=== PATIENT | female | born 1970 | race Caucasian/White ===

== ENCOUNTER 2016-05-01 15:25 | Emergency (ER) | payer MEDICARE, OTHER ==
[2016-05-01 16:03] VITALS: BP 137/81; PULSE 76; RESP 18; TEMP 98.3
[2016-05-01] MEDS ORDERED: methylPREDNISolone SOD SUCCI 125 MG/2 ML VIAL IM STA (16:18)
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
== END 2016-05-01 16:35 | disposition home or self-care (01) ==
LOC: EC 15:25
DX: G89.29 Other chronic pain (principal); M54.5 Low back pain; F17.200 Nicotine dependence, unspecified, uncomplicated; Z85.89 Personal history of malignant neoplasm of other organs and systems; Z88.5 Allergy status to narcotic agent; V87.8XXA Person injured in other specified noncollision transport accidents involving motor vehicle (traffic), initial encounter; Y92.410 Unspecified street and highway as the place of occurrence of the external cause
CPT/HCPCS: 99283; 96372; J2930

== ENCOUNTER 2016-12-02 06:09 | Day surgery (SDC) | payer MEDICARE, OTHER ==
[2016-11-24 15:36] VITALS: BMI 20.2
[~2016-12-02 06:09] MED LIST: DEXAMETHASONE SOD PHOSPHATE 10 MG/ML 1 ML VIAL IV ONE; HEPARIN SODIUM,PORCINE 5,000 UNIT/ML 1 ML VIAL SQ ONE; HYDROmorphone 1 MG/ML 1 ML SYRINGE IVP PRN; LACTATED RINGERS 1,000 ML IV SCH; MIDAZOLAM 2 MG/2 ML VIAL IV PRN; ONDANSETRON 4 MG/2 ML VIAL IVP ONE; ceFAZolin 2 GM in SODIUM CHLORIDE 0.9% 100 ML IVPB ONE
[2016-12-02] MEDS ORDERED: LIDOCAINE 1% 20 ML VIAL (10MG/ML) FOR IV START INTRADERMA ONE (06:45)
[2016-12-02] MEDS ORDERED: LIDOCAINE 2%-EPI 1:100,000 20 ML VIAL SQ ONE (07:29)
[2016-12-02] MEDS ORDERED: BUPIVACAINE (PF) 0.25% 30 ML VIAL SQ ONE (07:30)
--- NOTE | 2016-12-02 07:55 | P.GSHP ---
History of Present Illness H&P Date: 12/02/16 Chief Complaint: Umbilical hernia This a 46-year-old female who's spell pain at her umbilicus. She was seen in the office and found have a small umbilical hernia. She presents today for laparoscopic robotic system repair. 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 History of Any Multi-Drug Resistant Organisms: MRSA Date of last positivie culture/infection: 2013 MDRO Source:: buttocks Past Surgical History: Section Additional Past Surgical History / Comment(s): surgery, hemorrhoidectomy Past Anesthesia/Blood Transfusion Reactions: Previous Problems w/ Anesthesia Additional Past Anesthesia/Blood Transfusion Reaction / Comment(s): hard time waking up, headaches with epidurals Past Psychological History: Anxiety, Panic Disorder Smoking Status: Current every day smoker Past Alcohol Use History: None Reported Additional Past Alcohol Use History / Comment(s): smoker since age 16, 1/2ppd Past Drug Use History: None Reported - Past Family History Father Family Medical History: Myocardial Infarction ([place]) Mother Family Medical History: Hypertension Medications and Allergies Home Medications Medication Instructions Recorded Confirmed Type traMADol HCl [Ultram] 50 mg PO Q4H PRN 11/18/13 11/24/16 History ALPRAZolam [Xanax] 1 mg PO BID 11/24/16 11/24/16 History Albuterol Inhaler [Ventolin Hfa 1 - 2 puff INHALATION Q6HR PRN 11/24/16 History Inhaler] Pregabalin [Lyrica] 150 mg PO BID 11/24/16 11/24/16 History Allergies Allergy/AdvReac Type Severity Reaction Status Date / Time codeine Allergy Unknown Verified 11/24/16 14:58 meperidine HCl [From Demerol] Allergy Nausea & Verified 11/24/16 14:58 Vomiting morphine Allergy Itching Verified 11/24/16 14:58 Surgical - Exam Vital Signs Temp Pulse Resp BP Pulse Ox 98.1 F 72 18 110/81 96 12/02/16 06:31 12/02/16 06:31 12/02/16 06:31 12/02/16 06:31 12/02/16 06:31 - General well developed, no distress - Eyes PERRL - ENT normal pinna - Neck no masses - Respiratory normal expansion - Cardiovascular Rhythm: regular - Abdomen Abdomen: soft, non tender Hernia: umbilical Assessment and Plan Plan: Umbilical hernia. We'll perform laparoscopic robotic system repair.
[2016-12-02] MEDS ORDERED: NEOSTIGMINE 1 MG/ML 10 ML VIAL ONE (07:58)
[2016-12-02] MEDS ORDERED: SUCCINYLCHOLINE CHLORIDE 100 MG/5 ML SYR IV ONE (07:58)
[2016-12-02] MEDS ORDERED: fentaNYL (PF) 50 MCG/ML 2 ML AMP ONE (07:58)
[2016-12-02] MEDS ORDERED: PROPOFOL 10 MG/ML 20 ML VIAL IV ONE (07:58)
[2016-12-02] MEDS ORDERED: ROCURONIUM BROMIDE 10 MG/ML 10 ML VIAL IV ONE (07:58)
[2016-12-02] MEDS ORDERED: KETOROLAC 30 MG/ML 1 ML VIAL ONE (07:58)
[2016-12-02] MEDS ORDERED: LIDOCAINE 1% INJ 10MG/ML (20 ML MDV) ONE (07:58)
[2016-12-02] MEDS ORDERED: MIDAZOLAM 2 MG/2 ML VIAL ONE (07:58)
[2016-12-02] MEDS ORDERED: GLYCOPYRROLATE 0.2 MG/ML 2 ML VIAL ONE (07:58)
--- NOTE | 2016-12-02 09:06 | P.OP ---
Date of Procedure: 12/02/16 Preoperative Diagnosis: Umbilical hernia Postoperative Diagnosis: Umbilical hernia Procedure(s) Performed: Operative Robotic-assisted repair of umbilical hernia Implants: Anesthesia: ARCHIEA Surgeon: Kg Gonzalez Estimated Blood Loss (ml): 5 Pathology: none sent Condition: stable Disposition: PACU Indications for Procedure: Operative Findings: Description of Procedure: The patient's placed the operative table in the supine position. She received general anesthesia. Her abdomen was prepped and draped usual sterile fashion. The abdomen was entered via a optical 5 mm trocar under direct visualization. Then the abdomen was insufflated after adequate insufflation a 8 mm robotic trochars placed left lower quadrant and a 12 mm trochars placed left lateral position and the original 5 mm trocar was exchanged for an 8 mm robotic trocar. The patient was then docked to the robot. The umbilical hernia was visualized. There was some incarcerated. Peritoneal fat. This was reduced using hook cautery and traction. The fascial defect was then closed with OV lock suture. Next a piece of ventral X ST mesh was secured to the fascia using 2 OV lock suture. Next the was then undocked the robot. The needles were retrieved. The fascia of the 12 mm trocar site was closed with 0 Ethibond. The skin was closed interrupted 3-0 Monocryl suture. Dermabond was applied. Patient top procedure well and was sent to recovery in stable condition.
[2016-12-02 09:24] VITALS: TEMP 97.2
[2016-12-02 09:34] VITALS: RESP 16
[2016-12-02] MEDS ORDERED: HYDROcodone/APAP 7.5-325MG 1 EACH TAB PO ONE (10:30)
[2016-12-02 11:07] VITALS: BP 139/82; PULSE 70
== END 2016-12-02 11:09 | disposition home or self-care (01) ==
LOC: OR 06:09
PROVIDERS: ATTEND Surgery
DX: K42.0 Umbilical hernia with obstruction, without gangrene (principal); J45.909 Unspecified asthma, uncomplicated; F17.200 Nicotine dependence, unspecified, uncomplicated; F41.9 Anxiety disorder, unspecified; F41.0 Panic disorder [episodic paroxysmal anxiety]; Z79.899 Other long term (current) drug therapy; Z88.5 Allergy status to narcotic agent
CPT/HCPCS: 81025; 49653; C1781; J2250; J1644; J1100; J2710; J0690; J2405; J2001; J3010; J1885; J1170; J0330; J2704

== ENCOUNTER 2016-12-16 10:15 | Emergency (ER) | payer MEDICARE, OTHER ==
[2016-12-16] MEDS ORDERED: SODIUM CHLORIDE 0.9% 500 ML IV STA (10:55)
[2016-12-16] MEDS ORDERED: MORPHINE SULFATE 4 MG/ML SYRINGE IV STA (10:55)
[2016-12-16] MEDS ORDERED: SODIUM CHLORIDE 0.9% 1,000 ML IV STA (10:55)
[2016-12-16] MEDS ORDERED: ONDANSETRON 4 MG/2 ML VIAL IVP STA (10:55)
[2016-12-16] MEDS ORDERED: HYDROmorphone 1 MG/ML 1 ML SYRINGE IVP STA (11:02)
[2016-12-16 11:31] LABS: Basophils # (A) 0.1 k/uL (0-0.2); Basophils % (A) 0 %; CH 34.6; CHCM 34.8; Eosinophils # (A) 0.5 k/uL (0-0.7); Eosinophils % (A) 4 %; HCT 37.2 % (34.0-46.0); HGB 12.6 gm/dL (11.4-16.0); Luc % (Auto) 2; Lymphocytes # (A) 3.1 k/uL (1.0-4.8); Lymphocytes % (A) 23 %; MCV 100.1 fL (80.0-100.0); Macrocytosis Slight; Mean Platelet Volume 7.9; Monocytes # (A) 0.9 k/uL (0-1.0); Monocytes % (A) 6 %; Neutrophils # (A) 8.7 k/uL (1.3-7.7); Neutrophils % (A) 65 %; RBC 3.72 m/uL (3.80-5.40); RDW 14.4 % (11.5-15.5); WBC 13.4 k/uL (3.8-10.6)
--- NOTE | 2016-12-16 11:46 | XR ---
EXAMINATION TYPE: XR chest 2V DATE OF EXAM: 12/16/2016 CLINICAL HISTORY: Pain TECHNIQUE: Frontal and lateral views of the chest are obtained. COMPARISON: None FINDINGS: There is no focal air space opacity, pleural effusion, or pneumothorax seen. The cardiac silhouette size is within normal limits. The osseous structures are intact. IMPRESSION: No acute cardiopulmonary process.
[2016-12-16 11:49] LABS: ALT 22 U/L (9-52); AST 16 U/L (14-36); Alkaline Phosphatase 75 U/L (38-126); Amylase <30 U/L (30-110); Anion Gap 11 mmol/L; Blood Urea Nitrogen 2 mg/dL (7-17); C Reactive Protein 44.6 mg/L (<10.0); Calcium 9.1 mg/dL (8.4-10.2); Carbon Dioxide 23 mmol/L (22-30); Chloride 104 mmol/L (98-107); Glucose 96 mg/dL (74-99); Non-African American GFR(MDRD) >60 (>60 ml/min/1.73 sqM); Potassium 3.7 mmol/L (3.5-5.1); Sodium 138 mmol/L (137-145); Total Bilirubin 0.2 mg/dL (0.2-1.3); Total Protein 6.2 g/dL (6.3-8.2)
--- NOTE | 2016-12-16 11:52 | XR ---
EXAMINATION TYPE: XR KUB DATE OF EXAM: 12/16/2016 COMPARISON: NONE HISTORY: Pain TECHNIQUE: Single supine KUB image of the abdomen is obtained FINDINGS: Small bowel demonstrates no evidence for dilatation or air fluid levels. Gas and fecal material is seen in non-distended colon. No convincing evidence for pneumoperitoneum. No unusual calcifications. The lung bases are clear. The osseous structures are intact. IMPRESSION: 1. Overall nonobstructive bowel gas pattern.
[2016-12-16] MEDS ORDERED: RX INFO: IV CONTRAST WAS GIVEN 1 EACH MISC MISCELLANE PRN (12:24)
--- NOTE | 2016-12-16 13:00 | ED ---
Abdominal Pain HPI - General Chief Complaint: Abdominal Pain Stated Complaint: Poss blood clot Time Seen by Provider: 12/16/16 10:25 Source: patient Mode of arrival: ambulatory Limitations: no limitations - History of Present Illness Initial Comments: 6 years old female had laparoscopic hernia repair 15 days ago she had the mild pain or longer. The worse today, she seen her family doctor this morning and she was advised to come to the ER she doesn't follow up appointment with Dr. Gonzalez tomorrow morning, pain is diffuse pain she said she had a mild fever earlier no nausea no vomiting she moved her bowels today. He has nausea no vomiting. Denies any headaches no chest pain or shortness of breath, abdominal pain no frequency urgency dysuria - Related Data Home Medications Medication Instructions Recorded Confirmed traMADol HCl [Ultram] 50 mg PO Q4H PRN 11/18/13 12/16/16 ALPRAZolam [Xanax] 1 mg PO BID 11/24/16 12/16/16 Pregabalin [Lyrica] 150 mg PO BID 11/24/16 12/16/16 Previous Rx's Medication Instructions Recorded HYDROmorphone [Dilaudid] 1 mg PO Q4HR PRN #12 tab 12/16/16 Levofloxacin [Levaquin] 750 mg PO DAILY #7 tab 12/16/16 Allergies Allergy/AdvReac Type Severity Reaction Status Date / Time codeine Allergy Unknown Verified 12/16/16 10:45 meperidine HCl [From Demerol] Allergy Nausea & Verified 12/16/16 10:45 Vomiting morphine Allergy Itching Verified 12/16/16 10:45 Review of Systems ROS Statement: Those systems with pertinent positive or pertinent negative responses have been documented in the HPI. ROS Other: All systems not noted in ROS Statement are negative. 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 History of Any Multi-Drug Resistant Organisms: MRSA Date of last positivie culture/infection: 2013 MDRO Source:: buttocks Past Surgical History: Section Additional Past Surgical History / Comment(s): surgery, hemorrhoidectomy Past Anesthesia/Blood Transfusion Reactions: Previous Problems w/ Anesthesia Additional Past Anesthesia/Blood Transfusion Reaction / Comment(s): hard time waking up, headaches with epidurals Past Psychological History: Anxiety, Panic Disorder Smoking Status: Current every day smoker Past Alcohol Use History: None Reported Past Drug Use History: None Reported - Past Family History Father Family Medical History: Myocardial Infarction ([place]) Mother Family Medical History: Hypertension General Exam - General Exam Comments Initial Comments: General: The patient is awake and alert, in mild distress Skin: Skin is warm and dry and no rashes or lesions are noted. Eye: Pupils are equal, round and reactive to light, extra-ocular movements are intact; there is normal conjunctiva bilaterally. Ears, nose, mouth and throat: There are moist mucous membranes and no oral lesions. Neck: The neck is supple, there is no tenderness or JVD. Cardiovascular: There is a regular rate and rhythm. No murmur, rub or gallop is appreciated. Respiratory: To auscultation bilateral, no wheezing no rhonchi no distress respiratory hall noticed Gastrointestinal: Abdomen seems bit distended, bowel sounds are hyperactive mild guarding, mild diffuse discomfort all over the abdomen Back: There is no tenderness to palpation in the midline. There is no obvious deformity. Musculoskeletal: Normal ROM, no tenderness, There is no pedal edema. There is no calf tenderness or swelling. No cords were appreciated. Neurological: CN II-XII intact, Cranial nerves III through XII are intact. There are no obvious motor or sensory deficits. Coordination appears grossly intact. Speech is normal. Psychiatric: Cooperative, appropriate mood & affect, normal judgment. Limitations: no limitations Course Vital Signs 12/16/16 12/16/16 10:16 13:53 Temperature 97.7 F Pulse Rate 89 83 Respiratory 18 18 Rate Blood Pressure 119/76 131/79 O2 Sat by Pulse 98 97 Oximetry Vision was reassessed at around 12:15, noticed white count was slightly elevated at 13.4 KUB and chest x-ray were negative see . protein was elevated as well and considering elevated C-reactive protein and ongoing pain actually worsening pain over the last couple days were provided and proceed with CT of the abdomen and patient agrees with the - Reevaluation(s) Reevaluation #1: 12/16/16 14:02 Vision was reassessed couple times, noticed his CT abdomen revealed large fluid collection about 10.5 cm and then also a small lesion noticed on the lumbar considering it could be a postoperative seroma or accumulation of polyps I will R Dr. Gonzalez patient be started on antibiotics. I spoke with Dr. Gonzalez doctors in recommended Levaquin 750 mg by mouth once daily and some pain medications and he will see her tomorrow morning 12/16/16 14:11 Medical Decision Making - Lab Data Result diagrams: 12/16/16 11:00 12/16/16 11:00 Lab Results 12/16/16 12/16/16 12/16/16 Range/Units 11:00 11:00 13:11 WBC 13.4 H (3.8-10.6) k/uL RBC 3.72 L (3.80-5.40) m/uL Hgb 12.6 (11.4-16.0) gm/dL Hct 37.2 (34.0-46.0) % MCV 100.1 H (80.0-100.0) fL MCH 34.0 (25.0-35.0) pg MCHC 34.0 (31.0-37.0) g/dL RDW 14.4 (11.5-15.5) % Plt Count 422 (150-450) k/uL Neutrophils % 65 % Lymphocytes % 23 % Monocytes % 6 % Eosinophils % 4 % Basophils % 0 % Neutrophils # 8.7 H (1.3-7.7) k/uL Lymphocytes # 3.1 (1.0-4.8) k/uL Monocytes # 0.9 (0-1.0) k/uL Eosinophils # 0.5 (0-0.7) k/uL Basophils # 0.1 (0-0.2) k/uL Macrocytosis Slight Sodium 138 (137-145) mmol/L Potassium 3.7 (3.5-5.1) mmol/L Chloride 104 (98-107) mmol/L Carbon Dioxide 23 (22-30) mmol/L Anion Gap 11 mmol/L BUN 2 L (7-17) mg/dL Creatinine 0.60 (0.52-1.04) mg/dL Est GFR (MDRD) Af Amer >60 (>60 ml/min/1.73 sqM) Est GFR (MDRD) Non-Af >60 (>60 ml/min/1.73 sqM) Glucose 96 (74-99) mg/dL Calcium 9.1 (8.4-10.2) mg/dL Total Bilirubin 0.2 (0.2-1.3) mg/dL AST 16 (14-36) U/L ALT 22 (9-52) U/L Alkaline Phosphatase 75 (38-126) U/L C-Reactive Protein 44.6 H (<10.0) mg/L Total Protein 6.2 L (6.3-8.2) g/dL Albumin 3.8 (3.5-5.0) g/dL Amylase <30 L (30-110) U/L Lipase 25 (23-300) U/L Urine Color Colorless Urine Appearance Clear (Clear) Urine pH 6.5 (5.0-8.0) Ur Specific [place] 1.001 (1.001-1.035) Urine Protein Negative (Negative) Urine Glucose (UA) Negative (Negative) Urine Ketones Negative (Negative) Urine Blood Trace H (Negative) Urine Nitrite Negative (Negative) Urine Bilirubin Negative (Negative) Urine Urobilinogen <2.0 (<2.0) mg/dL Ur Leukocyte Esterase Negative (Negative) Urine RBC <1 (0-5) /hpf Urine WBC 1 (0-5) /hpf Ur Squamous Epith Cells 1 (0-4) /hpf Urine Bacteria Rare H (None) /hpf Disposition Clinical Impression: Abdominal pain, Liver lesion, Seroma Disposition: HOME SELF-CARE Condition: Good Instructions: Abdominal Pain (ED) Additional Instructions: I spoke with the Dr. Gonzalez, he agreed to see her tomorrow morning in his office Prescriptions: HYDROmorphone [Dilaudid] 1 mg PO Q4HR PRN #12 tab PRN Reason: Pain Levofloxacin [Levaquin] 750 mg PO DAILY #7 tab Referrals: Tavo Corbin MD [Primary Care Provider] - 1-2 days
[2016-12-16 13:37] LABS: Appearance,Urine Clear (Clear); Bacteria,Urine Rare /hpf; Bilirubin,Urine Negative (Negative); Glucose,Urine (UA) Negative (Negative); Ketones,Urine Negative (Negative); Leukocyte Esterase,Urine Negative (Negative); Nitrite,Urine Negative (Negative); PH, Urine 6.5 (5.0-8.0); Particle Count 420; Protein,Urine Negative (Negative); RBC,Urine <1 /hpf (0-5); Specific Gravity,Urine 1.001 (1.001-1.035); Squamous Epithelial Cell,Urine 1 /hpf (0-4); UA Billing (MACRO vs. MICRO) MICRO; Urobilinogen,Urine <2.0 mg/dL (<2.0); WBC,Urine 1 /hpf (0-5)
--- NOTE | 2016-12-16 13:52 | CT ---
EXAMINATION TYPE: CT abdomen pelvis w con DATE OF EXAM: 12/16/2016 COMPARISON: PET CT 01/26/2015 HISTORY: 46 year-old female possible blood clot; s/p hernia repair TECHNIQUE: Contiguous axial scanning of the abdomen and pelvis following administration of 100 ml Omn ipaque 300 IV contrast. Delayed images through the kidneys and coronal/sagittal reconstructions perf ormed. CT DLP: 809 mGycm Automated exposure control for dose reduction was used. FINDINGS: Partially visualized bilateral breast implants. Heart is normal size without pericardial effusion. Chronic atelectasis/scarring medial right middle l obe and inferior lingula. Additional dependent opacities at the lung bases could represent some inter stitial scarring or areas of atelectasis. No pleural effusion. Small hiatal hernia. Small amount of focal fat along the anterior falciform ligament. There is also a nonspecific enhancing lesion within the inferior right hepatic lobe measuring 1 cm, a xial image 36. Follow-up is recommended. No biliary ductal dilatation. Portal venous system appears patent. Gallbladder, adrenal glands, kidneys, spleen, and pancreas show no gross abnormality. No dilated small bowel or free air. Normal appendix. There is moderate stool burden without pericolic inflammatory change seen. There is a large fluid collection along the anterior intra-abdominal space just deep to the abdominal wall musculature. This may be bounded posteriorly by hernia repair mesh or this could represent thin rim of enhancement. Collection measures 10.4 cm wide by 2.5 cm thick by 6.9 cm craniocaudal. There i s some adjacent inflammatory fat stranding along the inferior margin of this fluid collection. Interv al repair of the patient's fatty umbilical hernia. Bladder is urine distended. Uterus and ovaries are visualized. There is small to moderate cul-de-sac free fluid which may be physiologic or could reflect the inflammatory process in the anterior abdomen . No pelvic lymphadenopathy seen. Bones: No osseous destructive process. IMPRESSION: 1. A LARGE 10.4 CM FLUID COLLECTION WITHIN THE ANTERIOR INTRA-ABDOMINAL SPACE JUST DEEP TO THE UMBILI CUS. A POSTOPERATIVE SEROMA OR OTHER FLUID COLLECTION SUCH ABSCESS ARE THE DIFFERENTIAL. Interval repair of patient's fatty umbilical hernia. 2. Small to moderate cul-de-sac free fluid could be physiologic or could be reactive fluid from the i nflammatory process mentioned above. 3. A 1 cm enhancing lesion in the inferior right liver lobe. Stability is uncertain given patient's p rior noncontrast exams. Given the patient's history of cancer, a 3-6 month follow-up contrast enhance d CT is recommended to reassess.
[2016-12-16] MEDS ORDERED: cefTRIAXone 2,000 MG in SODIUM CHLORIDE 0.9% 100 ML IVPB STA (14:01)
[2016-12-16] MEDS ORDERED: metroNIDAZOLE-NS PMX 500 MG in SALINE 1 100ML.BAG IVPB STA (14:01)
[2016-12-16] MEDS ORDERED: LEVOFLOXACIN 750 MG TAB PO STA (14:22)
[2016-12-16 14:33] VITALS: BP 120/72; PULSE 84; RESP 20; TEMP 98
== END 2016-12-16 14:33 | disposition home or self-care (01) ==
LOC: EC 10:15
DX: K91.873 Postprocedural seroma of a digestive system organ or structure following other procedure (principal); K76.9 Liver disease, unspecified; F41.0 Panic disorder [episodic paroxysmal anxiety]; F17.200 Nicotine dependence, unspecified, uncomplicated; Z86.14 Personal history of Methicillin resistant Staphylococcus aureus infection; Z98.890 Other specified postprocedural states; Z85.44 Personal history of malignant neoplasm of other female genital organs; Z79.899 Other long term (current) drug therapy; Z88.5 Allergy status to narcotic agent
CPT/HCPCS: 36415; 80053; 82150; 83690; 85025; 86140; 81001; 71020; 74000; 74177; 99284; 96374; 96375; 96361 ×3; J2405; J1170; Q9967

== ENCOUNTER → 2017-04-07 | Outpatient (CLI) | payer MEDICARE, OTHER ==
--- NOTE | 2017-04-07 15:36 | CT ---
EXAMINATION TYPE: CT abdomen pelvis w con DATE OF EXAM: 04/07/2017 COMPARISON: 12/16/2016 INDICATION: enlarged liver on previous scan, hx of cancer on vulva DLP: 883 mGycm, Automated exposure control for dose reduction was used. CONTRAST: 100 mL of Omnipaque 300. Study performed with Oral Contrast TECHNIQUE: Axial images were obtained from above the diaphragm to the pubic rami in the axial plane a t 5 mm thick sections. Reconstructed images are reviewed on the computer in the coronal plane. FINDINGS: Limited CT sections are obtained the lung bases. The lung bases are clear. CT ABDOMEN: Liver: Previous hyperdense abnormality on the tip of the right lobe of liver appears diminished in si ze over the interval. This currently is estimated to measure 0.8 cm in the craniocaudal dimension, se egraldine 3 image 30. Liver otherwise has a homogenous echotexture without additional masses or cysts. Reji e fatty infiltration is near the anterior right medial lobe liver adjacent to the ligamentum teres. Spleen: Normal Pancreas: Normal Adrenal glands: The adrenal glands are normal. Gallbladder: Normal Kidneys: No masses are evident. No hydronephrosis is present. No cysts are present. Delayed images were obtained through the kidneys, which remain unremarkable. Aorta: Vascular calcification is within the aorta. Inferior vena cava: Normal. CT PELVIS: Previous anterior abdominal wall fluid collection below the level of the umbilicus has res olved over the interval. Loops of bowel within the abdomen and pelvis are normal. There are loops of bowel which are incom pletely distended or lack oral contrast limiting their evaluation. Appendix: Normal as visualized. Urinary bladder: Partially decompressed with some limitation. Genitourinary structures: Uterus and adnexal regions appear within normal limits. Osseous structures: No suspicious lytic or sclerotic lesions. IMPRESSIONS: 1. No suspicious changes within the liver for increasing in size. Small area at the inferior right t ip of the liver is smaller than comparison. 2. No new suspicious changes.
== END | disposition home or self-care (01) ==
LOC: RADCTMAIN 14:57
PROVIDERS: ATTEND Family Medicine
DX: R16.0 Hepatomegaly, not elsewhere classified (principal); Z88.5 Allergy status to narcotic agent
CPT/HCPCS: 74177; Q9967

== ENCOUNTER → 2017-09-18 | Outpatient (CLI) | payer MEDICARE, OTHER ==
--- NOTE | 2017-09-20 11:49 | PE ---
EXAMINATION TYPE: PET CT fusion skull to thigh DATE OF EXAM: 09/18/2017 COMPARISON: CT abdomen pelvis April 07, 2017. Outside PET/CT January 26, 2015 HISTORY: Vulvar cancer progress study completed chemotherapy and surgery September 2012 TECHNIQUE: Following the intravenous administration of 13.9 mCi of F-18 FDG, whole body images are p erformed from the skull base to the midthigh. Images are reviewed on the computer in the coronal, ax ial, and sagittal planes. Reconstructed rotating images are created on independent workstation and r eviewed on the computer. A localization and attenuation correction CT is performed in conjunction w ith the PET scan. SCAN: Subsequent Scan FINDINGS: SKULL BASE AND NECK: No suspicious hypermetabolic uptake is present. CHEST, MEDIASTINUM, AND HILAR REGION: No suspicious hypermetabolic uptake is seen. ABDOMEN AND PELVIS: No suspicious hypermetabolic uptake is seen. Mild uptake in collecting systems, r ight ureter, and bladder is noted. Mild right-sided bowel uptake is present. OSSEOUS STRUCTURES: No suspicious hypermetabolic uptake is seen. OTHER CT: There is small mucous retention cyst or polyp in the inferior posterior right maxillary sin us axial image 19. There is mild calcified plaque right carotid bulb axial image 41. Bilateral symmetric appearing breast implants are present. There is bibasilar linear scarring and/or atelectasis in both lungs near diaphragm. There is multilevel facet arthropathy in the lower lumbar spine. IMPRESSION: No suspicious hypermetabolic uptake is identified to suggest neoplastic recurrence.
== END | disposition home or self-care (01) ==
LOC: RADPETMAIN 13:16
PROVIDERS: ATTEND Obstetrics & Gynecology
DX: C51.9 Malignant neoplasm of vulva, unspecified (principal)
CPT/HCPCS: 78815; A9552

== ENCOUNTER 2018-03-10 15:17 | Emergency (ER) | payer MEDICARE, OTHER ==
[2018-03-10] MEDS ORDERED: KETOROLAC 60 MG/2 ML VIAL IM STA (15:24)
[2018-03-10] MEDS ORDERED: DIAZEPAM 5 MG/ML 2 ML INJ IM STA (15:24)
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
[2018-03-10 15:48] VITALS: TEMP 98.4
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
[2018-03-10 17:23] VITALS: BP 127/92; PULSE 79; RESP 18
== END 2018-03-10 17:15 | disposition home or self-care (01) ==
LOC: EC 15:17
DX: S39.012A Strain of muscle, fascia and tendon of lower back, initial encounter (principal); Z85.44 Personal history of malignant neoplasm of other female genital organs; F41.9 Anxiety disorder, unspecified; F17.200 Nicotine dependence, unspecified, uncomplicated; Z79.891 Long term (current) use of opiate analgesic; Z79.899 Other long term (current) drug therapy; Z88.5 Allergy status to narcotic agent; V49.40XA Driver injured in collision with unspecified motor vehicles in traffic accident, initial encounter; Y92.410 Unspecified street and highway as the place of occurrence of the external cause
CPT/HCPCS: 72110; 99284; 96372 ×2; J3360; J1885

== ENCOUNTER → 2018-04-13 | Outpatient (CLI) | payer OTHER ==
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
== END | disposition home or self-care (01) ==
LOC: RADUSWWP 16:39
PROVIDERS: ATTEND Physician Assistant
DX: M79.662 Pain in left lower leg (principal); R22.42 Localized swelling, mass and lump, left lower limb

== ENCOUNTER → 2018-04-20 | Outpatient (CLI) | payer OTHER ==
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
== END | disposition home or self-care (01) ==
LOC: RADMRIMAIN 20:12
PROVIDERS: ATTEND Family Medicine
DX: M47.816 Spondylosis without myelopathy or radiculopathy, lumbar region (principal)
CPT/HCPCS: 72158; A9585

== ENCOUNTER → 2018-09-01 | Outpatient (CLI) | payer MEDICARE ==
--- NOTE | 2018-09-01 09:06 | MR ---
EXAMINATION TYPE: MR shoulder RT wo con DATE OF EXAM: 09/01/2018 8:27 AM COMPARISON: NONE HISTORY: Pain in right shoulder TECHNIQUE: Multiplanar multispin echo imaging of the right shoulder was performed. FINDINGS: Rotator cuff : There is heterogeneity of the supraspinatus tendon compatible with chronic tendinopath y. No evidence for partial or full-thickness tear. Remaining constituents of the rotator cuff are int act. Bursa: No bursal effusion or thickening is seen. Musculature: There is no muscular tear, contusion, or atrophy. Acromioclavicular joint : There is lateral downsloping of the acromion with subacromial spurring resu lting in impingement. Mild AC joint arthropathy noted. Osseous structures : There are no fractures or regions of abnormal bone marrow signal intensity. Long biceps tendon : The biceps tendon is normally situated within the bicipital groove. No complete or partial biceps tendon tear is present. Glenohumeral Joint fluid : There is no glenohumeral joint effusion. Cartilage and Bone : No focal hyaline cartilage defects are noted. No Hill-Sachs, reverse Hill-Sachs, or bony Bankart lesions are seen. Labrum : There are no SLAP or soft tissue Bankart lesions. No paralabral cysts are seen. OTHER FINDINGS : none IMPRESSION: 1. Chronic tendinopathy supraspinatus tendon with the subacromial impingement.
== END | disposition home or self-care (01) ==
LOC: RADMRIMAIN 07:50
PROVIDERS: ATTEND Family Medicine
DX: M25.811 Other specified joint disorders, right shoulder (principal); M67.813 Other specified disorders of tendon, right shoulder

== ENCOUNTER 2018-09-02 10:41 | Emergency (ER) | payer MEDICARE ==
[2018-09-02 10:59] VITALS: BP 119/67; PULSE 83; RESP 18; TEMP 97.8
[2018-09-02] MEDS ORDERED: ACET/COD 300 MG/30 MG STARTER PACK 6 TAB BTL PO STA (11:33)
--- NOTE | 2018-09-02 11:33 | ED ---
General Adult HPI - General Chief complaint: Recheck/Abnormal Lab/Rx Stated complaint: shoulder pain Time Seen by Provider: 09/02/18 11:07 Source: patient, family, RN notes reviewed Mode of arrival: ambulatory Limitations: no limitations - History of Present Illness Initial comments: 47-year-old female presents to the emergency department for a chief complaint of right shoulder pain. Patient states that approximately one week ago she fell down about 15 stairs. States she has had pain in the right shoulder since that time. States it is very painful to move the shoulder. She did have an MRI completed on yesterday but states that "it is 2019 and I should not have to sit in pain." Patient states she did try to call her primary care doctor today but he is out of the office.Patient has no other complaints at this time including shortness of breath, chest pain, abdominal pain, nausea or vomiting, headache, or visual changes. - Related Data Home Medications Medication Instructions Recorded Confirmed traMADol HCl [Ultram] 100 mg PO BID 11/18/13 09/02/18 Ibuprofen [Motrin] 800 mg PO Q8H PRN 09/02/18 09/02/18 Allergies Allergy/AdvReac Type Severity Reaction Status Date / Time codeine Allergy Unknown Verified 09/02/18 11:21 meperidine HCl [From Demerol] Allergy Nausea & Verified 09/02/18 11:21 Vomiting morphine AdvReac Itching Verified 09/02/18 11:21 Review of Systems ROS Statement: Those systems with pertinent positive or pertinent negative responses have been documented in the HPI. ROS Other: All systems not noted in ROS Statement are negative. Past Medical History Past Medical History: Cancer Additional Past Medical History / Comment(s): back pain, vulva cancer History of Any Multi-Drug Resistant Organisms: None Reported Date of last positivie culture/infection: 2013 MDRO Source:: buttocks Past Surgical History: Hernia Repair Additional Past Surgical History / Comment(s): surgery Past Anesthesia/Blood Transfusion Reactions: Previous Problems w/ Anesthesia Additional Past Anesthesia/Blood Transfusion Reaction / Comment(s): hard time waking up, headaches with epidurals Past Psychological History: Anxiety Smoking Status: Current every day smoker Past Alcohol Use History: None Reported Past Drug Use History: None Reported - Past Family History Father Family Medical History: Myocardial Infarction (ME) Mother Family Medical History: Hypertension General Exam Limitations: no limitations General appearance: alert, in no apparent distress Head exam: Present: atraumatic, normocephalic, normal inspection Eye exam: Present: normal appearance, PERRL, EOMI. Absent: scleral icterus, conjunctival injection, periorbital swelling ENT exam: Present: normal exam, mucous membranes moist Neck exam: Present: normal inspection, full ROM. Absent: tenderness (No cervical tenderness noted), meningismus, lymphadenopathy Respiratory exam: Present: normal lung sounds bilaterally. Absent: respiratory distress, wheezes, rales, rhonchi, stridor Cardiovascular Exam: Present: regular rate, normal rhythm, normal heart sounds. Absent: systolic murmur, diastolic murmur, rubs, gallop, clicks Extremities exam: Present: tenderness (Generalized tenderness to the right shoulder), normal capillary refill (Capillary refill less than 2 seconds, radial pulse 2+), other (Sensation intact in the right upper extremity). Absent: full ROM (Patient has very limited range of motion to the right shoulder but is able to abduct and flex about 20), joint swelling (No significant edema or ecchymosis noted of the right shoulder) Neurological exam: Present: alert, oriented X3, CN II-XII intact Psychiatric exam: Present: normal affect, normal mood Course Vital Signs 09/02/18 10:56 Temperature 97.8 F Pulse Rate 83 Respiratory 18 Rate Blood Pressure 119/67 O2 Sat by Pulse 97 Oximetry Medical Decision Making - Medical Decision Making 47-year-old female presents for right shoulder pain after fall down and 15 stairs about one week ago. No loss of consciousness. Patient has already been evaluated for this fall. Denies any neck pain. Patient states on the vinson today is right shoulder pain. States that she had an MRI done yesterday. The impression does show chronic tendinopathy supraspinatus tendon with the subacromial impingement. Patient was given a sling for this. Patient is very upset that her Motrin is not helping her. Will be given a starter pack of Tylenol 3. I did discuss folllowing up with orthopedics. Also discussed regarding range of motion exercises with a sling to prevent frozen shoulder. Discussed returning here if she has any worsening symptoms. Disposition Clinical Impression: Supraspinatus tendinitis Disposition: HOME SELF-CARE Condition: Good Instructions (If sedation given, give patient instructions): Rotator Cuff Injury (ED) Additional Instructions: Please take Motrin for pain. If pain is severe take Tylenol 3. Wear sling as needed. Be sure to do range of motion exercises with the sling to prevent frozen shoulder. Follow-up with primary care and orthopedics in one to 2 days. Return here if you have any worsening symptoms. Is patient prescribed a controlled substance at d/c from ED?: No Referrals: Alen Escamilla MD [Primary Care Provider] - 1-2 days Carlos Ramirez MD [Medical Doctor] - 1-2 days Time of Disposition: 11:32
== END 2018-09-02 11:54 | disposition home or self-care (01) ==
LOC: EC 10:41
DX: M75.81 Other shoulder lesions, right shoulder (principal); F17.200 Nicotine dependence, unspecified, uncomplicated; Z85.44 Personal history of malignant neoplasm of other female genital organs; Z79.891 Long term (current) use of opiate analgesic; Z88.5 Allergy status to narcotic agent
CPT/HCPCS: 99283

== ENCOUNTER 2018-09-28 16:01 | Inpatient (IN) | payer MEDICARE ==
[2018-09-28] MEDS ORDERED: IBUPROFEN 600 MG TAB PO STA (16:35)
[2018-09-28] MEDS ORDERED: SODIUM CHLORIDE 0.9% 1,000 ML IV STA ×3 (16:35→18:37)
[2018-09-28] MEDS ORDERED: ACETAMINOPHEN TAB 500 MG TAB PO STA (16:35)
[2018-09-28] MEDS ORDERED: ONDANSETRON 4 MG/2 ML VIAL IVP STA (16:35)
[2018-09-28 16:59] LABS: Basophils % (A) 0 %; Eosinophils # (A) 0.3 k/uL (0-0.7); Eosinophils % (A) 2 %; HCT 37.6 % (34.0-46.0); HGB 12.6 gm/dL (11.4-16.0); Lymphocytes # (A) 1.8 k/uL (1.0-4.8); Lymphocytes % (A) 13 %; MCH 32.9 pg (25.0-35.0); MCHC 33.4 g/dL (31.0-37.0); MCV 98.4 fL (80.0-100.0); Mean Platelet Volume 7.4; Monocytes # (A) 0.6 k/uL (0-1.0); Monocytes % (A) 5 %; Neutrophils # (A) 10.5 k/uL (1.3-7.7); Neutrophils % (A) 79 %; Platelet Count 215 k/uL (150-450); RBC 3.82 m/uL (3.80-5.40); RDW 12.9 % (11.5-15.5); WBC 13.3 k/uL (3.8-10.6)
[2018-09-28 17:02] LABS: Appearance,Urine Clear (Clear); Bilirubin,Urine Negative (Negative); Blood,Urine Moderate (Negative); Color,Urine Yellow; Glucose,Urine (UA) Negative (Negative); Ketones,Urine Negative (Negative); Leukocyte Esterase,Urine Trace (Negative); Mucus,Urine Rare /hpf; Nitrite,Urine Negative (Negative); Protein,Urine 1+ (Negative); RBC,Urine 70 /hpf (0-5); Specific Gravity,Urine 1.011 (1.001-1.035); Urobilinogen,Urine <2.0 mg/dL (<2.0); WBC,Urine 4 /hpf (0-5)
[2018-09-28 17:10] LABS: Partial Thromboplastin Time 25.9 sec (22.0-30.0); Prothrombin Time 10.7 sec (9.0-12.0)
[2018-09-28 17:16] LABS: ALT 55 U/L (9-52); AST 281 U/L (14-36); African American GFR (CKD) >90 (>60 ml/min/1.73 sqM); Albumin 3.9 g/dL (3.5-5.0); Alkaline Phosphatase 67 U/L (38-126); Anion Gap 10 mmol/L; Blood Urea Nitrogen 6 mg/dL (7-17); Calcium 8.7 mg/dL (8.4-10.2); Carbon Dioxide 25 mmol/L (22-30); Chloride 97 mmol/L (98-107); Glucose 124 mg/dL (74-99); Magnesium 1.6 mg/dL (1.6-2.3); Phosphorus 2.4 mg/dL (2.5-4.5); Potassium 3.4 mmol/L (3.5-5.1); Sodium 132 mmol/L (137-145); Total Bilirubin 0.4 mg/dL (0.2-1.3); Total Protein 6.2 g/dL (6.3-8.2)
--- NOTE | 2018-09-28 17:20 | ED ---
Fever HPI - General Chief Complaint: Recheck/Abnormal Lab/Rx Stated Complaint: lower back pain Time Seen by Provider: 09/28/18 16:34 Source: patient, RN notes reviewed, old records reviewed Mode of arrival: ambulatory Limitations: no limitations - History of Present Illness Initial Comments: This is a 47-year-old female the ER for evaluation. Patient resents today for evaluation regarding not feeling well. Patient Brenning of left arm pain since a fall 2 weeks ago. Patient also complaining of fever. No cough no congestion or shortness of breath. She does feel weak. No abdominal pain. No headache. Patient presents today for pain with fever. The pain is in her left arm left hand. No recent travel history no sick contacts. MD Complaint: fever, weakness, other (Left arm pain) -: days(s) Temperature Source: subjective Associated Symptoms: chills, myalgias, nausea Treatments Prior to Arrival: none - Related Data Home Medications Medication Instructions Recorded Confirmed traMADol HCl [Ultram] 100 mg PO BID 11/18/13 09/28/18 ALPRAZolam [Xanax] 1 mg PO BID PRN 09/28/18 09/28/18 PARoxetine [Paxil] 40 mg PO DAILY 09/28/18 09/28/18 Pregabalin [Lyrica] 150 mg PO BID 09/28/18 09/28/18 Allergies Allergy/AdvReac Type Severity Reaction Status Date / Time codeine Allergy Unknown Verified 09/28/18 16:58 meperidine HCl [From Demerol] Allergy Nausea & Verified 09/28/18 16:58 Vomiting morphine AdvReac Itching, Verified 09/28/18 16:58 AGGRESIVE Review of Systems ROS Statement: Those systems with pertinent positive or pertinent negative responses have been documented in the HPI. ROS Other: All systems not noted in ROS Statement are negative. Past Medical History Past Medical History: Cancer Additional Past Medical History / Comment(s): back pain, vulva cancer History of Any Multi-Drug Resistant Organisms: None Reported Date of last positivie culture/infection: 2013 MDRO Source:: buttocks Past Surgical History: Hernia Repair Additional Past Surgical History / Comment(s): surgery Past Anesthesia/Blood Transfusion Reactions: Previous Problems w/ Anesthesia Additional Past Anesthesia/Blood Transfusion Reaction / Comment(s): hard time waking up, headaches with epidurals Past Psychological History: Anxiety Smoking Status: Current every day smoker Past Alcohol Use History: None Reported Past Drug Use History: None Reported - Past Family History Father Family Medical History: Myocardial Infarction ([place]) Mother Family Medical History: Hypertension General Exam Limitations: no limitations General appearance: alert, in no apparent distress Head exam: Present: atraumatic, normocephalic, normal inspection Eye exam: Present: normal appearance, PERRL, EOMI. Absent: scleral icterus, conjunctival injection, periorbital swelling ENT exam: Present: normal exam, mucous membranes moist Neck exam: Present: normal inspection. Absent: tenderness, meningismus, lymphadenopathy Respiratory exam: Present: normal lung sounds bilaterally. Absent: respiratory distress, wheezes, rales, rhonchi, stridor Cardiovascular Exam: Present: normal rhythm, tachycardia, normal heart sounds. Absent: systolic murmur, diastolic murmur, rubs, gallop, clicks GI/Abdominal exam: Present: soft, normal bowel sounds. Absent: distended, tenderness, guarding, rebound, rigid Extremities exam: Present: normal inspection, full ROM, normal capillary refill. Absent: tenderness, pedal edema, joint swelling, calf tenderness Back exam: Present: normal inspection Neurological exam: Present: alert, oriented X3, CN II-XII intact Psychiatric exam: Present: normal affect, normal mood Skin exam: Present: warm, dry, intact, normal color. Absent: rash Course Vital Signs 09/28/18 09/28/18 09/28/18 16:02 17:24 18:21 Temperature 102.5 F H 99.3 F Pulse Rate 110 H 90 85 Respiratory 20 18 18 Rate Blood Pressure 120/63 118/77 108/68 O2 Sat by Pulse 94 L 94 L 93 L Oximetry - Reevaluation(s) Reevaluation #1: 09/28/18 18:41 Medical record is reviewed Reevaluation #2: 09/28/18 18:42 Patient is some symptomatic improvement currently Medical Decision Making - Medical Decision Making 47 female the ER for evaluation. Patient having acute rhabdomyolysis. Fever. Unknown cause of fever will start on for broad-spectrum antibiotic, patient be admitted for significant rehydration monitoring of kidney function - Lab Data Result diagrams: 09/28/18 16:50 09/28/18 16:50 Lab Results 09/28/18 09/28/18 09/28/18 Range/Units 16:50 16:50 16:50 WBC 13.3 H (3.8-10.6) k/uL RBC 3.82 (3.80-5.40) m/uL Hgb 12.6 (11.4-16.0) gm/dL Hct 37.6 (34.0-46.0) % MCV 98.4 (80.0-100.0) fL MCH 32.9 (25.0-35.0) pg MCHC 33.4 (31.0-37.0) g/dL RDW 12.9 (11.5-15.5) % Plt Count 215 (150-450) k/uL Neutrophils % 79 % Lymphocytes % 13 % Monocytes % 5 % Eosinophils % 2 % Basophils % 0 % Neutrophils # 10.5 H (1.3-7.7) k/uL Lymphocytes # 1.8 (1.0-4.8) k/uL Monocytes # 0.6 (0-1.0) k/uL Eosinophils # 0.3 (0-0.7) k/uL Basophils # 0.0 (0-0.2) k/uL PT (9.0-12.0) sec INR (<1.2) APTT (22.0-30.0) sec Sodium 132 L (137-145) mmol/L Potassium 3.4 L (3.5-5.1) mmol/L Chloride 97 L (98-107) mmol/L Carbon Dioxide 25 (22-30) mmol/L Anion Gap 10 mmol/L BUN 6 L (7-17) mg/dL Creatinine 0.59 (0.52-1.04) mg/dL Est GFR (CKD-EPI)AfAm >90 (>60 ml/min/1.73 sqM) Est GFR (CKD-EPI)NonAf >90 (>60 ml/min/1.73 sqM) Glucose 124 H (74-99) mg/dL Plasma Lactic Acid Jan 2.9 H* (0.7-2.0) mmol/L Calcium 8.7 (8.4-10.2) mg/dL Phosphorus 2.4 L (2.5-4.5) mg/dL Magnesium 1.6 (1.6-2.3) mg/dL Total Bilirubin 0.4 (0.2-1.3) mg/dL AST 281 H (14-36) U/L ALT 55 H (9-52) U/L Alkaline Phosphatase 67 (38-126) U/L Creatine Kinase 31512 H* (30-135) U/L Troponin I (0.000-0.034) ng/mL Total Protein 6.2 L (6.3-8.2) g/dL Albumin 3.9 (3.5-5.0) g/dL Urine Color Urine Appearance (Clear) Urine pH (5.0-8.0) Ur Specific [place] (1.001-1.035) Urine Protein (Negative) Urine Glucose (UA) (Negative) Urine Ketones (Negative) Urine Blood (Negative) Urine Nitrite (Negative) Urine Bilirubin (Negative) Urine Urobilinogen (<2.0) mg/dL Ur Leukocyte Esterase (Negative) Urine RBC (0-5) /hpf Urine WBC (0-5) /hpf Urine Mucus (None) /hpf Influenza Type A RNA (Not Detectd) Influenza Type B (PCR) (Not Detectd) 09/28/18 09/28/18 09/28/18 Range/Units 16:50 16:50 16:50 WBC (3.8-10.6) k/uL RBC (3.80-5.40) m/uL Hgb (11.4-16.0) gm/dL Hct (34.0-46.0) % MCV (80.0-100.0) fL MCH (25.0-35.0) pg MCHC (31.0-37.0) g/dL RDW (11.5-15.5) % Plt Count (150-450) k/uL Neutrophils % % Lymphocytes % % Monocytes % % Eosinophils % % Basophils % % Neutrophils # (1.3-7.7) k/uL Lymphocytes # (1.0-4.8) k/uL Monocytes # (0-1.0) k/uL Eosinophils # (0-0.7) k/uL Basophils # (0-0.2) k/uL PT 10.7 (9.0-12.0) sec INR 1.0 (<1.2) APTT 25.9 (22.0-30.0) sec Sodium (137-145) mmol/L Potassium (3.5-5.1) mmol/L Chloride (98-107) mmol/L Carbon Dioxide (22-30) mmol/L Anion Gap mmol/L BUN (7-17) mg/dL Creatinine (0.52-1.04) mg/dL Est GFR (CKD-EPI)AfAm (>60 ml/min/1.73 sqM) Est GFR (CKD-EPI)NonAf (>60 ml/min/1.73 sqM) Glucose (74-99) mg/dL Plasma Lactic Acid Jan (0.7-2.0) mmol/L Calcium (8.4-10.2) mg/dL Phosphorus (2.5-4.5) mg/dL Magnesium (1.6-2.3) mg/dL Total Bilirubin (0.2-1.3) mg/dL AST (14-36) U/L ALT (9-52) U/L Alkaline Phosphatase (38-126) U/L Creatine Kinase (30-135) U/L Troponin I <0.012 (0.000-0.034) ng/mL Total Protein (6.3-8.2) g/dL Albumin (3.5-5.0) g/dL Urine Color Yellow Urine Appearance Clear (Clear) Urine pH 6.0 (5.0-8.0) Ur Specific [place] 1.011 (1.001-1.035) Urine Protein 1+ H (Negative) Urine Glucose (UA) Negative (Negative) Urine Ketones Negative (Negative) Urine Blood Moderate H (Negative) Urine Nitrite Negative (Negative) Urine Bilirubin Negative (Negative) Urine Urobilinogen <2.0 (<2.0) mg/dL Ur Leukocyte Esterase Trace H (Negative) Urine RBC 70 H (0-5) /hpf Urine WBC 4 (0-5) /hpf Urine Mucus Rare H (None) /hpf Influenza Type A RNA (Not Detectd) Influenza Type B (PCR) (Not Detectd) 09/28/18 Range/Units 17:22 WBC (3.8-10.6) k/uL RBC (3.80-5.40) m/uL Hgb (11.4-16.0) gm/dL Hct (34.0-46.0) % MCV (80.0-100.0) fL MCH (25.0-35.0) pg MCHC (31.0-37.0) g/dL RDW (11.5-15.5) % Plt Count (150-450) k/uL Neutrophils % % Lymphocytes % % Monocytes % % Eosinophils % % Basophils % % Neutrophils # (1.3-7.7) k/uL Lymphocytes # (1.0-4.8) k/uL Monocytes # (0-1.0) k/uL Eosinophils # (0-0.7) k/uL Basophils # (0-0.2) k/uL PT (9.0-12.0) sec INR (<1.2) APTT (22.0-30.0) sec Sodium (137-145) mmol/L Potassium (3.5-5.1) mmol/L Chloride (98-107) mmol/L Carbon Dioxide (22-30) mmol/L Anion Gap mmol/L BUN (7-17) mg/dL Creatinine (0.52-1.04) mg/dL Est GFR (CKD-EPI)AfAm (>60 ml/min/1.73 sqM) Est GFR (CKD-EPI)NonAf (>60 ml/min/1.73 sqM) Glucose (74-99) mg/dL Plasma Lactic Acid Jan (0.7-2.0) mmol/L Calcium (8.4-10.2) mg/dL Phosphorus (2.5-4.5) mg/dL Magnesium (1.6-2.3) mg/dL Total Bilirubin (0.2-1.3) mg/dL AST (14-36) U/L ALT (9-52) U/L Alkaline Phosphatase (38-126) U/L Creatine Kinase (30-135) U/L Troponin I (0.000-0.034) ng/mL Total Protein (6.3-8.2) g/dL Albumin (3.5-5.0) g/dL Urine Color Urine Appearance (Clear) Urine pH (5.0-8.0) Ur Specific [place] (1.001-1.035) Urine Protein (Negative) Urine Glucose (UA) (Negative) Urine Ketones (Negative) Urine Blood (Negative) Urine Nitrite (Negative) Urine Bilirubin (Negative) Urine Urobilinogen (<2.0) mg/dL Ur Leukocyte Esterase (Negative) Urine RBC (0-5) /hpf Urine WBC (0-5) /hpf Urine Mucus (None) /hpf Influenza Type A RNA Not Detected (Not Detectd) Influenza Type B (PCR) Not Detected (Not Detectd) - EKG Data -: EKG Interpreted by Me (EKG shows NSR rate of 90 [place] 150 QRS 88 QTc 437) - Radiology Data Radiology results: report reviewed (Chest x-rays negative for acute disease CT abdomen pelvis pending), image reviewed Disposition Clinical Impression: Fever, Rhabdomyolysis, Dehydration Disposition: ADMITTED IP TO THIS HOSP Condition: Serious Is patient prescribed a controlled substance at d/c from ED?: No Referrals: None,Stated [Primary Care Provider] - 1-2 days
[2018-09-28 17:40] LABS: Creatine Kinase 13310 U/L (30-135)
--- NOTE | 2018-09-28 18:09 | XR ---
EXAMINATION: XR chest 2V DATE AND TIME: 09/28/2018 5:39 PM CLINICAL INDICATION: PHH; Weakness TECHNIQUE: Departmental protocol COMPARISON: None FINDINGS: The lungs are clear. The pleural spaces are negative. The cardiac silhouette is not enlarged. The remainder of the mediastinal silhouette is unremarkable. The skeletal structures are negative for fracture or malalignment. The soft tissues are negative for acute findings. IMPRESSION: NO ACUTE PROCESS.
[2018-09-28] MEDS ORDERED: SODIUM CHLORIDE 0.9% 2,000 ML IV STA (18:37)
[2018-09-28 19:49] LABS: Lactic Acid, Venous 0.8 mmol/L (0.7-2.0)
--- NOTE | 2018-09-28 20:35 | CT ---
EXAMINATION TYPE: CT abdomen pelvis wo con DATE OF EXAM: 09/28/2018 HISTORY: Recent fall down stairs. Low back and buttock pain. TECHNIQUE: Helical acquisition of images was performed from the lung bases through the pelvis. Autom ated exposure control for dose reduction was used. CT DLP: 340.2 mGycm COMPARISON: 04/07/2017 FINDINGS: Within the limitations of noncontrast CT the following observations are made. LUNG BASES: There are bibasilar developing consolidative opacities, greater on the right; clinical ex clusion of pneumonia is requested. LIVER/GB: No significant abnormality is appreciated. PANCREAS: No significant abnormality is seen. SPLEEN: No significant abnormality is seen. ADRENALS: No significant abnormality is seen. KIDNEYS: No significant abnormality is seen. FREE AIR: No free air is visualized. No peritoneal fluid. RETROPERITONEAL ADENOPATHY: None visualized REPRODUCTIVE ORGANS: No significant abnormality is seen URINARY BLADDER: There is marked urinary bladder distention. No focal findings. PELVIC ADENOPATHY: None visualized. OSSEOUS STRUCTURES: There is no fracture or malalignment. BOWEL: No significant abnormality is seen. IMPRESSION: 1. NO DEFINITE ACUTE PROCESS. 2. Urinary bladder distention. 3. Incidental bibasilar lung ground glass/consolidative opacity, nonspecific finding.
[2018-09-28] MEDS: SODIUM CHLORIDE 0.9% 1,000 ML IV SCH (22:46)
[2018-09-28] MEDS ORDERED: POTASSIUM CHLORIDE ER 20 MEQ TAB.ER PO STA (23:08)
[2018-09-28] MEDS: ACETAMINOPHEN TAB 325 MG TAB PO PRN (23:36)
[2018-09-28] MEDS: ALPRAZolam 1 MG TAB PO PRN (23:36)
[2018-09-29] MEDS: SODIUM CHLORIDE 0.9% 1,000 ML IV SCH ×6 (02:10→23:19)
[2018-09-29] MEDS: ACETAMINOPHEN TAB 325 MG TAB PO PRN (05:56)
[2018-09-29 06:36] LABS: Basophils % (A) 0 %; Eosinophils # (A) 0.3 k/uL (0-0.7); Eosinophils % (A) 3 %; HCT 35.3 % (34.0-46.0); HGB 11.6 gm/dL (11.4-16.0); Lymphocytes # (A) 2.2 k/uL (1.0-4.8); Lymphocytes % (A) 26 %; MCH 32.9 pg (25.0-35.0); MCHC 32.9 g/dL (31.0-37.0); MCV 100.2 fL (80.0-100.0); Mean Platelet Volume 7.5; Monocytes # (A) 0.5 k/uL (0-1.0); Monocytes % (A) 6 %; Neutrophils # (A) 5.3 k/uL (1.3-7.7); Neutrophils % (A) 62 %; Platelet Count 195 k/uL (150-450); RBC 3.52 m/uL (3.80-5.40); RDW 13.1 % (11.5-15.5); WBC 8.5 k/uL (3.8-10.6)
[2018-09-29 06:48] LABS: African American GFR (CKD) >90 (>60 ml/min/1.73 sqM); Anion Gap 1 mmol/L; Blood Urea Nitrogen 4 mg/dL (7-17); Calcium 8.1 mg/dL (8.4-10.2); Carbon Dioxide 28 mmol/L (22-30); Chloride 111 mmol/L (98-107); Glucose 86 mg/dL (74-99); Potassium 3.9 mmol/L (3.5-5.1); Sodium 140 mmol/L (137-145)
[2018-09-29] MEDS: PANTOPRAZOLE 40 MG/10 ML VIAL IV SCH (08:53)
[2018-09-29] MEDS: ENOXAPARIN 40 MG/0.4 ML SYRINGE SQ SCH (08:53)
--- NOTE | 2018-09-29 13:41 | P.HPIM ---
History of Present Illness This is a pleasant 47 years old female with past medical history of chronic back pain, h/o vulvular cancer, status post genito-urinary surgery and chemotherapy in 2013. She is up and chemotherapy anymore. Because of the chemotherapy she had early menopause and patient does not want to be checked for test as she is been sexually inactive lately. She is to follow up with Dr. Small to an couple years ago he diagnosed her with tennis elbow, she is not sure what side. She's been complaining of from numbness and possible weakness in her left forearm for 2 weeks duration. Patient presents because of not feeling well. She has low back pain on the left side for 2 days and low-grade temperature and chills, patient she did not take her temperature. She was complaining from coughing of one-day duration but no sputum is coming up. No chest pain or dyspnea. No abdominal pain. No nausea vomiting. She has regular bowel movements. On admission she has fever of 102.5. Rest of Vitas looks stable. Blood pressure on the low normal site. Her leukocytosis on admission has resolved to 8.5K. Rest of her CBC and BMP were unremarkable. She had elevated lactic acid which is resolved. Influenza [place]. [place] [address]. Troponin is less than 0.012. Liver enzymes mildly elevated. EKG: Sumit sinus rhythm at [address]-T changes. CT of the abdomen and pelvis: Possible pneumonia. Marked urinary bladder distention. Chest x-ray no acute abnormality per radiologist. The emergency room patient was receiving a fluid, Tylenol, started on ceftriaxone. After starting the antibiotics and the fluid therapy, this morning patient feels much better and her lower back p ain is significantly improved. Patient states that she does not have a PCP, however she follows up with Dr. Silva for her management with Ultram, Lyrica and Xanax. She smokes about 4 cigarettes per day, however she denies alcohol or illicit tracts except medical marijuana as per patient Last menstrual period was about 2 years ago for her early menopause as above. Review of Systems CONSTITUTIONAL: No fever, no malaise, no fatigue. HEENT: No recent visual problems or hearing problems. Denied any sore throat. CARDIOVASCULAR: No orthopnea, PND, no palpitations, no syncope. PULMONARY: No shortness of breath, no cough, no hemoptysis. GASTROINTESTINAL: No diarrhea, no nausea, no vomiting, no abdominal pain. Normoactive bowel sounds. NEUROLOGICAL: No headaches, no weakness, no numbness. HEMATOLOGICAL: Denies any bleeding or petechiae. GENITOURINARY: Denies any burning micturition, frequency, or urgency. MUSCULOSKELETAL/RHEUMATOLOGICAL: Denies any joint pain, swelling, or any muscle pain. ENDOCRINE: Denies any polyuria or polydipsia. Past Medical History Past Medical History: Cancer Additional Past Medical History / Comment(s): back pain, vulva cancer History of Any Multi-Drug Resistant Organisms: None Reported Date of last positivie culture/infection: 2013 MDRO Source:: buttocks Past Surgical History: Hernia Repair Additional Past Surgical History / Comment(s): surgery Past Anesthesia/Blood Transfusion Reactions: Previous Problems w/ Anesthesia Additional Past Anesthesia/Blood Transfusion Reaction / Comment(s): hard time waking up, headaches with epidurals Past Psychological History: Anxiety Smoking Status: Current every day smoker Past Alcohol Use History: None Reported Additional Past Alcohol Use History / Comment(s): smoker since age 16, 4-5 cigarettes Past Drug Use History: None Reported - Past Family History Father Family Medical History: Myocardial Infarction ([place]) Mother Family Medical History: Hypertension Medications and Allergies Home Medications Medication Instructions Recorded Confirmed Type traMADol HCl [Ultram] 100 mg PO BID 11/18/13 09/28/18 History ALPRAZolam [Xanax] 1 mg PO BID PRN 09/28/18 09/28/18 History PARoxetine [Paxil] 40 mg PO DAILY 09/28/18 09/28/18 History Pregabalin [Lyrica] 150 mg PO BID 09/28/18 09/28/18 History Allergies Allergy/AdvReac Type Severity Reaction Status Date / Time codeine Allergy Unknown Verified 09/28/18 16:58 meperidine HCl [From Demerol] Allergy Nausea & Verified 09/28/18 16:58 Vomiting morphine AdvReac Itching, Verified 09/28/18 16:58 AGGRESIVE Physical Exam Vitals: Vital Signs Temp Pulse Pulse Resp BP BP Pulse Ox 09/29/18 08:45 98.7 F 61 16 91/57 97 09/29/18 04:00 97.6 F 62 16 102/52 95 09/29/18 03:30 20 09/29/18 00:00 97.8 F 65 16 95/62 96 09/28/18 22:54 98.4 F 71 20 104/63 93 L 09/28/18 20:24 98.7 F 76 18 109/86 93 L 09/28/18 20:00 98.4 F 71 18 104/63 90 L 09/28/18 19:21 87 18 98/68 94 L 09/28/18 18:21 99.3 F 85 18 108/68 93 L 09/28/18 17:24 90 18 118/77 94 L 09/28/18 16:02 102.5 F H 110 H 20 120/63 94 L Intake and Output 09/28/18 09/29/18 09/29/18 22:59 06:59 14:59 Intake Total 150 750 0 Balance 150 750 0 Intake: Intake, IV Titration 600 Amount Sodium Chloride 0.9% 1, 600 000 ml @ 150 mls/hr IV . Q6H40M [facility] Rx#:[id number] Oral 150 150 0 Other: Voiding Method Toilet # Voids 2 Weight 58.695 kg 58.649 kg GENERAL: The patient is alert and oriented x3, not in any acute distress. Well developed, well nourished. HEENT: Pupils are round and equally reacting to light. EOMI. No scleral icterus. No conjunctival pallor. Normocephalic, atraumatic. No pharyngeal erythema. No thyromegaly. CARDIOVASCULAR: S1 and S2 present. No murmurs, rubs, or gallops. PULMONARY: Chest is clear to auscultation, no wheezing or crackles. ABDOMEN: Soft, nontender, nondistended, normoactive bowel sounds. No palpable organomegaly. MUSCULOSKELETAL: No joint swelling or deformity. EXTREMITIES: No cyanosis, clubbing, or pedal edema. NEUROLOGICAL: Gross neurological examination did not reveal any focal deficits. SKIN: No rashes. Results CBC & Chem 7: 09/29/18 05:41 09/29/18 05:41 Labs: Abnormal Lab Results - Last 24 Hours (Table) 09/28/18 09/28/18 09/28/18 Range/Units 16:50 16:50 16:50 WBC 13.3 H (3.8-10.6) k/uL RBC (3.80-5.40) m/uL MCV (80.0-100.0) fL Neutrophils # 10.5 H (1.3-7.7) k/uL Sodium 132 L (137-145) mmol/L Potassium 3.4 L (3.5-5.1) mmol/L Chloride 97 L (98-107) mmol/L BUN 6 L (7-17) mg/dL Glucose 124 H (74-99) mg/dL Plasma Lactic Acid Jan 2.9 H* (0.7-2.0) mmol/L Calcium (8.4-10.2) mg/dL Phosphorus 2.4 L (2.5-4.5) mg/dL AST 281 H (14-36) U/L ALT 55 H (9-52) U/L Creatine Kinase 45178 H* (30-135) U/L Total Protein 6.2 L (6.3-8.2) g/dL Urine Protein (Negative) Urine Blood (Negative) Ur Leukocyte Esterase (Negative) Urine RBC (0-5) /hpf Urine Mucus (None) /hpf 09/28/18 09/29/18 09/29/18 Range/Units 16:50 05:41 05:41 WBC (3.8-10.6) k/uL RBC 3.52 L (3.80-5.40) m/uL MCV 100.2 H (80.0-100.0) fL Neutrophils # (1.3-7.7) k/uL Sodium (137-145) mmol/L Potassium (3.5-5.1) mmol/L Chloride 111 H (98-107) mmol/L BUN 4 L (7-17) mg/dL Glucose (74-99) mg/dL Plasma Lactic Acid Jan (0.7-2.0) mmol/L Calcium 8.1 L (8.4-10.2) mg/dL Phosphorus (2.5-4.5) mg/dL AST (14-36) U/L ALT (9-52) U/L Creatine Kinase (30-135) U/L Total Protein (6.3-8.2) g/dL Urine Protein 1+ H (Negative) Urine Blood Moderate H (Negative) Ur Leukocyte Esterase Trace H (Negative) Urine RBC 70 H (0-5) /hpf Urine Mucus Rare H (None) /hpf Microbiology - Last 24 Hours (Table) 09/28/18 16:50 Urine Culture - Preliminary Urine,Voided Thrombosis Risk Factor Assmnt - Choose All That Apply Any of the Below Risk Factors Present?: Yes Each Factor Represents 1 point: Age 41-60 years, Varicose veins Other Risk Factors: No Other congenital or acquired thrombophilia - If yes, enter type in comment: No Thrombosis Risk Factor Assessment Total Risk Factor Score: 2 Thrombosis Risk Factor Assessment Level: Low Risk Assessment and Plan Assessment: Systemic inflammatory response with fever and leukocytosis, Present on admission community-acquired pneumonia Sepsis secondary to above Acute rhabdomyolysis Hypovolemia and dehydration with low blood pressure Left forearm numbness of 2 weeks duration history of fall Elevated lactic acid, resolved and back to normal. Plan: This is a pleasant 47 years old female who presents with rhabdomyolysis and sepsis Secondary to pneumonia.Continue with parenteral hydration, continue with antibiotic, sputum for culture and sensitivity. Continue with a breathing treatment, oxygen as needed. We'll do physical therapy evaluation. Labs and medication were reviewed. Neurological consult for left upper extremity numbness. Continue same treatment. Continue with symptomatic treatment. Resume home medication. Monitor lytes and vitals. DVT and GI prophylaxis. Further recommendations of the clinical course of the patient DVT prophylaxis: Subcutaneous heparin GI Prophylaxis: Pepcid PT/OT: Pending Prognosis is guarded
--- NOTE | 2018-09-29 15:06 | P.CNNES ---
History of Present Illness Consult date: 09/29/18 Requesting physician: Chandler Rose Reason for Consult: LUE numbness Chief complaint: Left arm numbness x 1 month History of Present Illness: This is a 47 RH female here for pneumonia. She also c/o LUE numbness involving the left thumb, index, middle and ring fingers with radiation up to the lateral forearm. Does not generally go proximally beyond the elbow. Denies neck pain. Does have chronic LBP. No loss of strength or manual dexterity, though this is her non-dominant hand. Denies antecedent head/neck/LUE trauma. Patient states that her LUE actually has been feeling better lately. Neurologically, denies other focal c/o such as diplopia, amaurosis, facial numbness or droop, vertigo, dysarthria, dysphagia, aphasia, other area of focal numbness/weakness not mentioned above, tremors, bowel/bladder incontinence or ataxia. Review of Systems I have performed a 12-point organ ROS with patient that are remarkable for fever and SOB. Other pertinents are as per HPI. Past Medical History Past Medical History: Cancer Additional Past Medical History / Comment(s): back pain, vulva cancer History of Any Multi-Drug Resistant Organisms: None Reported Date of last positivie culture/infection: 2013 MDRO Source:: buttocks Past Surgical History: Hernia Repair Additional Past Surgical History / Comment(s): surgery Past Anesthesia/Blood Transfusion Reactions: Previous Problems w/ Anesthesia Additional Past Anesthesia/Blood Transfusion Reaction / Comment(s): hard time waking up, headaches with epidurals Past Psychological History: Anxiety Smoking Status: Current every day smoker Past Alcohol Use History: None Reported Additional Past Alcohol Use History / Comment(s): smoker since age 16, 4-5 cigarettes Past Drug Use History: None Reported - Past Family History Father Family Medical History: Myocardial Infarction ([place]) Mother Family Medical History: Hypertension Medications and Allergies Home Medications Medication Instructions Recorded Confirmed Type traMADol HCl [Ultram] 100 mg PO BID 11/18/13 09/28/18 History ALPRAZolam [Xanax] 1 mg PO BID PRN 09/28/18 09/28/18 History PARoxetine [Paxil] 40 mg PO DAILY 09/28/18 09/28/18 History Pregabalin [Lyrica] 150 mg PO BID 09/28/18 09/28/18 History Allergies Allergy/AdvReac Type Severity Reaction Status Date / Time codeine Allergy Unknown Verified 09/28/18 16:58 meperidine HCl [From Demerol] Allergy Nausea & Verified 09/28/18 16:58 Vomiting morphine AdvReac Itching, Verified 09/28/18 16:58 AGGRESIVE Physical Examination - Vital Signs Vital Signs: Vital Signs Temp Pulse Pulse Resp BP BP Pulse Ox 09/29/18 12:00 98 F 62 16 108/63 95 09/29/18 08:45 98.7 F 61 16 91/57 97 09/29/18 04:00 97.6 F 62 16 102/52 95 09/29/18 03:30 20 09/29/18 00:00 97.8 F 65 16 95/62 96 09/28/18 22:54 98.4 F 71 20 104/63 93 L 09/28/18 20:24 98.7 F 76 18 109/86 93 L 09/28/18 20:00 98.4 F 71 18 104/63 90 L 09/28/18 19:21 87 18 98/68 94 L 09/28/18 18:21 99.3 F 85 18 108/68 93 L 09/28/18 17:24 90 18 118/77 94 L 09/28/18 16:02 102.5 F H 110 H 20 120/63 94 L Intake and Output 09/28/18 09/29/18 09/29/18 22:59 06:59 14:59 Intake Total 150 750 0 Balance 150 750 0 Intake: Intake, IV Titration 600 Amount Sodium Chloride 0.9% 1, 600 000 ml @ 150 mls/hr IV . Q6H40M [facility] Rx#:[id number] Oral 150 150 0 Other: Voiding Method Toilet # Voids 2 Weight 58.695 kg 58.649 kg Gen NAD Pleasant and cooperative HEENT NCAT Sclera without icterus O/P clear Neck Supple No carotid bruit Cor RRR no m/r/g Lungs CTAB Abd Soft NTND +BS Ext Warm to touch No edema Neuro MS A+Ox4 Normal fluency Able to follow all commands CN PERRL VFF no APD EOMI no nystagmus or GUANAKO No facial asymmetry [place]'s symmetric Hearing intact to normal voice bilaterally Speech not dysarthric Equal elevation of palate Tongue midline Sym shrug and SCM bilaterally Motor Normal bulk/tone No pronator or tremors Strength 5/5 sym throughout Sens Diminished to LT/temp in left lateral forearm and thenar eminence No neglect or extinction No Lhermitte's or Spurlilng's No Tinel's over mid wrist or Phalen Coord No dysmetria on FTN bilaterally DTRs 2+/4 sym throughout Toes downgoing bilaterally No clonus at achilles Gait Deferred Results - Laboratory Findings CBC and BMP: 09/29/18 05:41 09/29/18 05:41 Abnormal Lab Findings: Abnormal Labs 09/28/18 09/28/18 09/28/18 16:50 16:50 16:50 WBC 13.3 H RBC MCV Neutrophils # 10.5 H Sodium 132 L Potassium 3.4 L Chloride 97 L BUN 6 L Glucose 124 H Plasma Lactic Acid Jan 2.9 H* Calcium Phosphorus 2.4 L AST 281 H ALT 55 H Creatine Kinase 05472 H* Total Protein 6.2 L Urine Protein Urine Blood Ur Leukocyte Esterase Urine RBC Urine Mucus 09/28/18 09/29/18 09/29/18 16:50 05:41 05:41 WBC RBC 3.52 L MCV 100.2 H Neutrophils # Sodium Potassium Chloride 111 H BUN 4 L Glucose Plasma Lactic Acid Jan Calcium 8.1 L Phosphorus AST ALT Creatine Kinase Total Protein Urine Protein 1+ H Urine Blood Moderate H Ur Leukocyte Esterase Trace H Urine RBC 70 H Urine Mucus Rare H Assessment and Plan Assessment: LUE numbness- most benign explanation would be carpal tunnel syndrome r/o cervical radiculopathy. Her exam is actually pretty non-lateralizing. Low index of suspicion for supratentorial structural explanation. Plan: -MRI C-spine wo chuck while in-house -Will need outpatient EMG/NCS to r/o entrapment neuropathy or cervical radiculopathy. Primary team please make referral to outpatient neurology to follow up in 2-3 weeks -d/w patient in detail. All questions answered. Thank you for this consultation. Please call with ?. Time with Patient: Greater than 30 (Time spent in direct patient care, greater than 50% of which was spent in [id number] counseling and coordination of care: 70 minutes.)
[2018-09-29] MEDS: FAMOTIDINE 20 MG/2 ML VIAL IV SCH (20:40)
[2018-09-29] MEDS ORDERED: HEPARIN SODIUM,PORCINE 5,000 UNIT/ML 1 ML VIAL SQ SCH (21:00)
[2018-09-29] MEDS: ALPRAZolam 1 MG TAB PO PRN (23:18)
[2018-09-30 07:04] LABS: Basophils % (A) 0 %; Eosinophils # (A) 0.2 k/uL (0-0.7); Eosinophils % (A) 2 %; HCT 37.1 % (34.0-46.0); HGB 12.2 gm/dL (11.4-16.0); Lymphocytes % (A) 20 %; MCH 32.7 pg (25.0-35.0); MCHC 32.8 g/dL (31.0-37.0); MCV 99.7 fL (80.0-100.0); Mean Platelet Volume 7.7; Monocytes # (A) 0.6 k/uL (0-1.0); Monocytes % (A) 6 %; Neutrophils # (A) 6.9 k/uL (1.3-7.7); Neutrophils % (A) 70 %; Platelet Count 214 k/uL (150-450); RBC 3.72 m/uL (3.80-5.40); RDW 13.2 % (11.5-15.5); WBC 9.9 k/uL (3.8-10.6)
[2018-09-30 07:18] LABS: ALT 74 U/L (9-52); AST 155 U/L (14-36); African American GFR (CKD) >90 (>60 ml/min/1.73 sqM); Albumin 2.8 g/dL (3.5-5.0); Alkaline Phosphatase 90 U/L (38-126); Anion Gap 5 mmol/L; Blood Urea Nitrogen 3 mg/dL (7-17); Calcium 8.4 mg/dL (8.4-10.2); Carbon Dioxide 25 mmol/L (22-30); Chloride 113 mmol/L (98-107); Potassium 4.2 mmol/L (3.5-5.1); Sodium 143 mmol/L (137-145); Total Bilirubin 0.4 mg/dL (0.2-1.3)
[2018-09-30 07:35] LABS: Glucose 91 mg/dL (74-99)
[2018-09-30] MEDS: PANTOPRAZOLE 40 MG/10 ML VIAL IV SCH (08:50)
[2018-09-30] MEDS: FAMOTIDINE 20 MG/2 ML VIAL IV SCH (08:50)
[2018-09-30] MEDS: ENOXAPARIN 40 MG/0.4 ML SYRINGE SQ SCH (08:51)
[2018-09-30 09:38] VITALS: BP 137/75; PULSE 71; RESP 18; TEMP 98.9
--- NOTE | 2018-09-30 11:53 | MR ---
EXAMINATION TYPE: MR cervical spine wo con DATE OF EXAM: 09/30/2018 COMPARISON: None HISTORY: LUE numbness r/o cervical radiculopathy TECHNIQUE: Multiplanar, multisequence images of the cervical spine were acquired. C2-C3: No evidence for degenerative disc disease. No disc bulge/herniation or protrusion. No Canal stenosis. Foramina are patent bilaterally. C3-C4: No evidence for degenerative disc disease. No disc bulge/herniation or protrusion. No Canal stenosis. Foramina are patent bilaterally. C4-C5: No evidence for degenerative disc disease. No disc bulge/herniation or protrusion. No Canal stenosis. Foramina are patent bilaterally. C5-C6: No evidence for degenerative disc disease. No disc bulge/herniation or protrusion. No Canal stenosis. Foramina are patent bilaterally. C6-C7: No evidence for degenerative disc disease. No disc bulge/herniation or protrusion. No Canal stenosis. Foramina are patent bilaterally. C7-T1: No evidence for degenerative disc disease. No disc bulge/herniation or protrusion. No Canal stenosis. Foramina are patent bilaterally. Cervical segments are intact. There is normal alignment. Cervical spinal cord is of normal signal. Craniovertebral junction relationships are within normal limits. Possible spinal curvature in the t horacic spine. IMPRESSION: Normal cervical spine MRI:
--- NOTE | 2018-09-30 12:06 | P.PN ---
Subjective Progress Note Date: 09/30/18 Principal diagnosis: LUE numbness x 1 month No events O/N. Wants to go home today. No new neuro c/o. Objective - Vital Signs Vital signs: Vital Signs Temp 98.9 F 09/30/18 07:30 Pulse 71 09/30/18 07:30 Resp 18 09/30/18 08:00 BP 137/75 09/30/18 07:30 Pulse Ox 98 09/30/18 07:30 Intake & Output 09/29/18 09/30/18 09/30/18 18:59 06:59 18:59 Intake Total 1694 375 Balance 1694 375 Intake: Intake, IV Titration 1250 75 Amount Sodium Chloride 0.9% 1, 1250 000 ml @ 150 mls/hr IV . Q6H40M [facility] Rx#:[id number] Sodium Chloride 0.9% 1, 75 000 ml @ 75 mls/hr IV . [id number] [facility] Rx#:[id number] Oral 444 300 Other: Voiding Method Toilet # Voids 1 - Exam Gen NAD Pleasant and cooperative MS A+Ox4 Normal speech CN II-XII grossly intact no nystagmus Motor Normal bulk/tone No tremors CORTEZ x4 Sens Decreased to LT/temp in distal LUE Coord No dysmetria on FTN bilaterally DTRs 2+/4 sym throughout Gait Deferred - Labs CBC & Chem 7: 09/30/18 06:47 09/30/18 06:47 Labs: Abnormal Lab Results - Last 24 Hours (Table) 09/30/18 09/30/18 09/30/18 Range/Units 06:47 06:47 06:47 RBC 3.72 L (3.80-5.40) m/uL Chloride 113 H (98-107) mmol/L BUN 3 L (7-17) mg/dL AST 155 H (14-36) U/L ALT 74 H (9-52) U/L Creatine Kinase 5042 H* (30-135) U/L Total Protein 5.0 L (6.3-8.2) g/dL Albumin 2.8 L (3.5-5.0) g/dL Microbiology - Last 24 Hours (Table) 09/28/18 16:50 Urine Culture - Final Urine,Voided 06/26/19 16:50 Blood Culture - Preliminary Blood No Growth after 24 hours - Imaging and Cardiology MRI C-spine wo chuck 09/30/18. No significant neuroforaminal or central stenosis. Assessment and Plan Assessment: LUE numbness- most benign explanation would be carpal tunnel syndrome. MRI C- spine entirely normal. Her exam is actually pretty non-lateralizing. Low index of suspicion for supratentorial structural explanation. Plan: -MRI C-spine wo chuck normal. -Will need outpatient EMG/NCS to r/o entrapment neuropathy such as CTS. Primary team please make referral to outpatient neurology to follow up in 2-3 weeks -d/w patient in detail. All questions answered. -No further inpatient neuro recs at this time. Will sign off. Please call with new ?. Thank you again for this consultation. Time with Patient: Less than 30 (Time spent in direct patient care, greater than 50% of which was spent in [id number] counseling and coordination of care: 25 minutes.)
--- NOTE | 2018-09-30 14:53 | XR ---
EXAMINATION TYPE: XR chest 1V DATE OF EXAM: 09/30/2018 COMPARISON: 09/28/2018 HISTORY: 47-year-old female with weakness TECHNIQUE: Single frontal view of the chest is obtained. FINDINGS: Heart normal size. Aorta and pulmonary vasculature within normal limits. Perirectal cuffing and inter stitial prominence is patchy right basilar opacity. IMPRESSION: 1. COPD. 2. Patchy right basilar atelectasis versus developing infiltrate/pneumonia. Clinically correlate.
[2018-09-30 16:03] LABS: Hepatitis A Antibody IgM Non-Reactive (Non-Reactive); Hepatitis B Core IgM Non-Reactive (Non-Reactive)
[2018-09-30] MEDS ORDERED: FAMOTIDINE 20 MG TAB PO SCH (21:00)
--- NOTE | 2018-09-30 22:34 | P.DS ---
Providers Date of admission: 09/28/18 18:38 Attending physician: Charlie Crawford Consults: 09/29/18 13:37 Consult Physician Urgent Consulting Provider: Iris Mckeon Consult Reason/Comments: left forearm numbness Do you want consulting provider notified?: Yes Primary care physician: Stated None Hospital Course: pt signed leaving AMA hosptial course : This is a pleasant 47 years old female with past medical history of chronic back pain, h/o vulvular cancer, status post genito-urinary surgery and chemotherapy in 2012. early menopause She's been complaining of from numbness and possible weakness in her left forearm for 2 weeks duration. Patient presents because of not feeling well. She has low back pain on the left side for 2 days and low-grade temperature and chills, patient she did not take her temperature. She was complaining from coughing of one-day duration but no sputum is coming up. No chest pain or dyspnea. No abdominal pain. No nausea vomiting. She has regular bowel movements. pt admited with dx of pna , rhabdomyolysis , hematuria and left forearm numbess, she is on iv anitbiotic, fluids andd workup is still in progress. today pt wanted to sign her self out. she did not give a reason why she wanted to leave. pt is counseled against signing leaving AMA, risks including but not limited to sepsis, renal failure, missing cancer lesion , stroke, paralysis, lo ss of function or permanent organ damage and/or are explained for the pt and she verbalized understanding but she still wants to sign AMA I counseled pt if she changes her mind or if she develops more seizure or any other signs or symptoms then to call 911 and come to emergency room . also i instructed pt to f/u with her pcp and neurologist as soon as possible. pt has capacity to make medical decision based upon my evaluation pt states she is calling her family (son/brother) to pick her up bed side RN attended the whole encounter . case discussed with her Patient Condition at Discharge: Serious Plan - Discharge Summary New Discharge Prescriptions: No Action traMADol HCl [Ultram] 100 mg PO BID ALPRAZolam [Xanax] 1 mg PO BID PRN PRN Reason: Anxiety Pregabalin [Lyrica] 150 mg PO BID PARoxetine [Paxil] 40 mg PO DAILY Discharge Medication List traMADol HCl [Ultram] 100 mg PO BID 11/18/13 [History] ALPRAZolam [Xanax] 1 mg PO BID PRN 09/28/18 [History] PARoxetine [Paxil] 40 mg PO DAILY 09/28/18 [History] Pregabalin [Lyrica] 150 mg PO BID 09/28/18 [History] Follow up Appointment(s)/Referral(s): None,Stated [Primary Care Provider] - 1-2 days Keenan Machado DO [STAFF PHYSICIAN] - 2 Weeks (left upper extrimity numbness, need NCS/EMG, to r/o entrapment neuropathy or cervical radiculopathy) Discharge Disposition: Left Against Medical Advice
== END 2018-09-30 14:36 | disposition left against medical advice (07) | DRG 871 ==
LOC: EC 16:01 → 3SCARD 18:38 → 6PED 09-29 22:54
PROVIDERS: ADMIT Hospitalist; ATTEND Hospitalist
DX: A41.9 Sepsis, unspecified organism (principal); J18.9 Pneumonia, unspecified organism; M62.82 Rhabdomyolysis; E87.2 Acidosis; E86.0 Dehydration; E86.1 Hypovolemia; F17.210 Nicotine dependence, cigarettes, uncomplicated; F41.9 Anxiety disorder, unspecified; G56.02 Carpal tunnel syndrome, left upper limb; G89.29 Other chronic pain; N32.89 Other specified disorders of bladder; Z79.899 Other long term (current) drug therapy; Z82.49 Family history of ischemic heart disease and other diseases of the circulatory system; Z85.44 Personal history of malignant neoplasm of other female genital organs; Z92.21 Personal history of antineoplastic chemotherapy; Z88.5 Allergy status to narcotic agent; Z91.81 History of falling
CPT/HCPCS: 36415; 71045; 71046; 72141; 74176; 80048; 80053; 80074; 81001; 82140; 82550; 83605; 83735; 84100; 84484; 85025; 85610; 85730; 87040; 87086; 87502; 93005; 96361; 96365; 99285

== ENCOUNTER 2019-05-20 18:13 | Emergency (ER) | payer MEDICARE, OTHER ==
[2019-05-20 18:25] VITALS: RESP 18; TEMP 98.2
--- NOTE | 2019-05-20 19:34 | ED ---
Altered Mental Status HPI - General Chief Complaint: Altered Mental Status Stated Complaint: Altered Mental Time Seen by Provider: 05/20/19 18:30 Source: patient, RN notes reviewed, old records reviewed Mode of arrival: ambulatory Limitations: no limitations - History of Present Illness MD Complaint: altered mental status, confusion -: days(s) Severity: moderate Consistency of Symptoms: waxing and waning Context: history of similar presentation Associated Symptoms: weakness - Related Data Home Medications Medication Instructions Recorded Confirmed traMADol HCl [Ultram] 100 mg PO BID 11/18/13 09/28/18 ALPRAZolam [Xanax] 1 mg PO BID PRN 09/28/18 09/28/18 PARoxetine [Paxil] 40 mg PO DAILY 09/28/18 09/28/18 Pregabalin [Lyrica] 150 mg PO BID 09/28/18 09/28/18 Allergies Allergy/AdvReac Type Severity Reaction Status Date / Time codeine Allergy Unknown Verified 05/20/19 18:25 meperidine HCl [From Demerol] Allergy Nausea & Verified 05/20/19 18:25 Vomiting morphine AdvReac Itching, Verified 05/20/19 18:25 AGGRESIVE Review of Systems ROS Statement: Those systems with pertinent positive or pertinent negative responses have been documented in the HPI. ROS Other: All systems not noted in ROS Statement are negative. Past Medical History Past Medical History: Cancer Additional Past Medical History / Comment(s): back pain, vulva cancer History of Any Multi-Drug Resistant Organisms: MRSA Date of last positivie culture/infection: 2013 MDRO Source:: buttocks Past Surgical History: Hernia Repair Additional Past Surgical History / Comment(s): surgery Past Anesthesia/Blood Transfusion Reactions: Previous Problems w/ Anesthesia Additional Past Anesthesia/Blood Transfusion Reaction / Comment(s): hard time waking up, headaches with epidurals Past Psychological History: Anxiety Smoking Status: Current every day smoker Past Alcohol Use History: None Reported Past Drug Use History: None Reported - Past Family History Father Family Medical History: Myocardial Infarction ([place]) Mother Family Medical History: Hypertension General Exam Limitations: no limitations General appearance: alert, in no apparent distress Head exam: Present: atraumatic, normocephalic, normal inspection Eye exam: Present: normal appearance, PERRL, EOMI. Absent: scleral icterus, conjunctival injection, periorbital swelling ENT exam: Present: normal exam, mucous membranes moist Neck exam: Present: normal inspection. Absent: tenderness, meningismus, lymphadenopathy Respiratory exam: Present: normal lung sounds bilaterally. Absent: respiratory distress, wheezes, rales, rhonchi, stridor Cardiovascular Exam: Present: regular rate, normal rhythm, normal heart sounds. Absent: systolic murmur, diastolic murmur, rubs, gallop, clicks GI/Abdominal exam: Present: soft, normal bowel sounds. Absent: distended, tenderness, guarding, rebound, rigid Extremities exam: Present: normal inspection, full ROM, normal capillary refill. Absent: tenderness, pedal edema, joint swelling, calf tenderness Back exam: Present: normal inspection Neurological exam: Present: alert, oriented X3, CN II-XII intact Psychiatric exam: Present: normal affect, normal mood Skin exam: Present: warm, dry, intact, normal color. Absent: rash Course Vital Signs 05/20/19 05/20/19 18:18 20:09 Temperature 98.2 F Pulse Rate 90 85 Respiratory 18 18 Rate Blood Pressure 139/70 143/98 O2 Sat by Pulse 96 97 Oximetry - Reevaluation(s) Reevaluation #1: 05/20/19 19:34 Medical records reviewed Medical Decision Making - Lab Data Result diagrams: 05/20/19 19:55 05/20/19 19:55 Lab Results 05/20/19 05/20/19 05/20/19 Range/Units 19:21 19:21 19:21 WBC (3.8-10.6) k/uL RBC (3.80-5.40) m/uL Hgb (11.4-16.0) gm/dL Hct (34.0-46.0) % MCV (80.0-100.0) fL MCH (25.0-35.0) pg MCHC (31.0-37.0) g/dL RDW (11.5-15.5) % Plt Count (150-450) k/uL Neutrophils % % Lymphocytes % % Monocytes % % Eosinophils % % Basophils % % Neutrophils # (1.3-7.7) k/uL Lymphocytes # (1.0-4.8) k/uL Monocytes # (0-1.0) k/uL Eosinophils # (0-0.7) k/uL Basophils # (0-0.2) k/uL PT (9.0-12.0) sec INR (<1.2) APTT (22.0-30.0) sec Sodium (137-145) mmol/L Potassium (3.5-5.1) mmol/L Chloride (98-107) mmol/L Carbon Dioxide (22-30) mmol/L Anion Gap mmol/L BUN (7-17) mg/dL Creatinine (0.52-1.04) mg/dL Est GFR (CKD-EPI)AfAm (>60 ml/min/1.73 sqM) Est GFR (CKD-EPI)NonAf (>60 ml/min/1.73 sqM) Glucose (74-99) mg/dL Calcium (8.4-10.2) mg/dL Total Bilirubin (0.2-1.3) mg/dL AST (14-36) U/L ALT (4-34) U/L Alkaline Phosphatase (38-126) U/L Ammonia (<30) umol/L Troponin I (0.000-0.034) ng/mL Total Protein (6.3-8.2) g/dL Albumin (3.5-5.0) g/dL Urine Color Light Yellow Urine Appearance Clear (Clear) Urine pH 6.5 (5.0-8.0) Ur Specific [place] 1.006 (1.001-1.035) Urine Protein Negative (Negative) Urine Glucose (UA) Negative (Negative) Urine Ketones Negative (Negative) Urine Blood Moderate H (Negative) Urine Nitrite Negative (Negative) Urine Bilirubin Negative (Negative) Urine Urobilinogen <2.0 (<2.0) mg/dL Ur Leukocyte Esterase Negative (Negative) Urine RBC 11 H (0-5) /hpf Urine WBC 5 (0-5) /hpf Ur Squamous Epith Cells 1 (0-4) /hpf Urine Bacteria Rare H (None) /hpf Urine HCG, Qual Not Detected (Not Detectd) Salicylates mg/dL Urine Opiates Screen Not Detected (NotDetected) Ur Oxycodone Screen Not Detected (NotDetected) Urine Methadone Screen Not Detected (NotDetected) Ur Propoxyphene Screen Not Detected (NotDetected) Acetaminophen ug/mL Ur Barbiturates Screen Not Detected (NotDetected) U Tricyclic Antidepress Not Detected (NotDetected) Ur Phencyclidine Scrn Not Detected (NotDetected) Ur Amphetamines Screen Detected H (NotDetected) U Methamphetamines Scrn Not Detected (NotDetected) U Benzodiazepines Scrn Not Detected (NotDetected) Urine Cocaine Screen Not Detected (NotDetected) U Marijuana (THC) Screen Not Detected (NotDetected) Serum Alcohol mg/dL 05/20/19 05/20/19 05/20/19 Range/Units 19:55 19:55 19:55 WBC 11.5 H (3.8-10.6) k/uL RBC 4.37 (3.80-5.40) m/uL Hgb 14.4 (11.4-16.0) gm/dL Hct 42.8 (34.0-46.0) % MCV 98.0 (80.0-100.0) fL MCH 32.9 (25.0-35.0) pg MCHC 33.6 (31.0-37.0) g/dL RDW 13.9 (11.5-15.5) % Plt Count 338 (150-450) k/uL Neutrophils % 58 % Lymphocytes % 30 % Monocytes % 7 % Eosinophils % 1 % Basophils % 1 % Neutrophils # 6.6 (1.3-7.7) k/uL Lymphocytes # 3.5 (1.0-4.8) k/uL Monocytes # 0.8 (0-1.0) k/uL Eosinophils # 0.1 (0-0.7) k/uL Basophils # 0.1 (0-0.2) k/uL PT 10.5 (9.0-12.0) sec INR 1.0 (<1.2) APTT 23.3 (22.0-30.0) sec Sodium 139 (137-145) mmol/L Potassium 3.2 L (3.5-5.1) mmol/L Chloride 101 (98-107) mmol/L Carbon Dioxide 30 (22-30) mmol/L Anion Gap 8 mmol/L BUN 6 L (7-17) mg/dL Creatinine 0.72 (0.52-1.04) mg/dL Est GFR (CKD-EPI)AfAm >90 (>60 ml/min/1.73 sqM) Est GFR (CKD-EPI)NonAf >90 (>60 ml/min/1.73 sqM) Glucose 96 (74-99) mg/dL Calcium 9.6 (8.4-10.2) mg/dL Total Bilirubin 0.6 (0.2-1.3) mg/dL AST 34 (14-36) U/L ALT 21 (4-34) U/L Alkaline Phosphatase 74 (38-126) U/L Ammonia (<30) umol/L Troponin I (0.000-0.034) ng/mL Total Protein 7.5 (6.3-8.2) g/dL Albumin 4.8 (3.5-5.0) g/dL Urine Color Urine Appearance (Clear) Urine pH (5.0-8.0) Ur Specific [place] (1.001-1.035) Urine Protein (Negative) Urine Glucose (UA) (Negative) Urine Ketones (Negative) Urine Blood (Negative) Urine Nitrite (Negative) Urine Bilirubin (Negative) Urine Urobilinogen (<2.0) mg/dL Ur Leukocyte Esterase (Negative) Urine RBC (0-5) /hpf Urine WBC (0-5) /hpf Ur Squamous Epith Cells (0-4) /hpf Urine Bacteria (None) /hpf Urine HCG, Qual (Not Detectd) Salicylates <1.0 mg/dL Urine Opiates Screen (NotDetected) Ur Oxycodone Screen (NotDetected) Urine Methadone Screen (NotDetected) Ur Propoxyphene Screen (NotDetected) Acetaminophen <10.0 ug/mL Ur Barbiturates Screen (NotDetected) U Tricyclic Antidepress (NotDetected) Ur Phencyclidine Scrn (NotDetected) Ur Amphetamines Screen (NotDetected) U Methamphetamines Scrn (NotDetected) U Benzodiazepines Scrn (NotDetected) Urine Cocaine Screen (NotDetected) U Marijuana (THC) Screen (NotDetected) Serum Alcohol <10 mg/dL 05/20/19 05/20/19 Range/Units 19:55 19:55 WBC (3.8-10.6) k/uL RBC (3.80-5.40) m/uL Hgb (11.4-16.0) gm/dL Hct (34.0-46.0) % MCV (80.0-100.0) fL MCH (25.0-35.0) pg MCHC (31.0-37.0) g/dL RDW (11.5-15.5) % Plt Count (150-450) k/uL Neutrophils % % Lymphocytes % % Monocytes % % Eosinophils % % Basophils % % Neutrophils # (1.3-7.7) k/uL Lymphocytes # (1.0-4.8) k/uL Monocytes # (0-1.0) k/uL Eosinophils # (0-0.7) k/uL Basophils # (0-0.2) k/uL PT (9.0-12.0) sec INR (<1.2) APTT (22.0-30.0) sec Sodium (137-145) mmol/L Potassium (3.5-5.1) mmol/L Chloride (98-107) mmol/L Carbon Dioxide (22-30) mmol/L Anion Gap mmol/L BUN (7-17) mg/dL Creatinine (0.52-1.04) mg/dL Est GFR (CKD-EPI)AfAm (>60 ml/min/1.73 sqM) Est GFR (CKD-EPI)NonAf (>60 ml/min/1.73 sqM) Glucose (74-99) mg/dL Calcium (8.4-10.2) mg/dL Total Bilirubin (0.2-1.3) mg/dL AST (14-36) U/L ALT (4-34) U/L Alkaline Phosphatase (38-126) U/L Ammonia <9 (<30) umol/L Troponin I <0.012 (0.000-0.034) ng/mL Total Protein (6.3-8.2) g/dL Albumin (3.5-5.0) g/dL Urine Color Urine Appearance (Clear) Urine pH (5.0-8.0) Ur Specific [place] (1.001-1.035) Urine Protein (Negative) Urine Glucose (UA) (Negative) Urine Ketones (Negative) Urine Blood (Negative) Urine Nitrite (Negative) Urine Bilirubin (Negative) Urine Urobilinogen (<2.0) mg/dL Ur Leukocyte Esterase (Negative) Urine RBC (0-5) /hpf Urine WBC (0-5) /hpf Ur Squamous Epith Cells (0-4) /hpf Urine Bacteria (None) /hpf Urine HCG, Qual (Not Detectd) Salicylates mg/dL Urine Opiates Screen (NotDetected) Ur Oxycodone Screen (NotDetected) Urine Methadone Screen (NotDetected) Ur Propoxyphene Screen (NotDetected) Acetaminophen ug/mL Ur Barbiturates Screen (NotDetected) U Tricyclic Antidepress (NotDetected) Ur Phencyclidine Scrn (NotDetected) Ur Amphetamines Screen (NotDetected) U Methamphetamines Scrn (NotDetected) U Benzodiazepines Scrn (NotDetected) Urine Cocaine Screen (NotDetected) U Marijuana (THC) Screen (NotDetected) Serum Alcohol mg/dL - EKG Data -: EKG Interpreted by Me (EKG shows sinus rhythm rate of 71, ID [id number], QRS 80, QTC 423) Disposition Clinical Impression: Altered mental status Disposition: HOME SELF-CARE Condition: Good Instructions (If sedation given, give patient instructions): Altered Mental Status (ED) Is patient prescribed a controlled substance at d/c from ED?: No Referrals: Hugo Martin MD [Primary Care Provider] - 1-2 days
[2019-05-20] MEDS ORDERED: SODIUM CHLORIDE 0.9% 1,000 ML IV STA (19:35)
[2019-05-20 19:38] LABS: Appearance,Urine Clear (Clear); Bacteria,Urine Rare /hpf; Bilirubin,Urine Negative (Negative); Blood,Urine Moderate (Negative); Color,Urine Light Yellow; Glucose,Urine (UA) Negative (Negative); Ketones,Urine Negative (Negative); Leukocyte Esterase,Urine Negative (Negative); Nitrite,Urine Negative (Negative); PH, Urine 6.5 (5.0-8.0); Protein,Urine Negative (Negative); RBC,Urine 11 /hpf (0-5); Specific Gravity,Urine 1.006 (1.001-1.035); Squamous Epithelial Cell,Urine 1 /hpf (0-4); Urobilinogen,Urine <2.0 mg/dL (<2.0); WBC,Urine 5 /hpf (0-5)
[2019-05-20 20:10] LABS: Basophils # (A) 0.1 k/uL (0-0.2); Basophils % (A) 1 %; Eosinophils # (A) 0.1 k/uL (0-0.7); Eosinophils % (A) 1 %; HCT 42.8 % (34.0-46.0); HGB 14.4 gm/dL (11.4-16.0); Lymphocytes # (A) 3.5 k/uL (1.0-4.8); Lymphocytes % (A) 30 %; MCH 32.9 pg (25.0-35.0); MCHC 33.6 g/dL (31.0-37.0); Mean Platelet Volume 7.8; Monocytes # (A) 0.8 k/uL (0-1.0); Monocytes % (A) 7 %; Neutrophils # (A) 6.6 k/uL (1.3-7.7); Neutrophils % (A) 58 %; Platelet Count 338 k/uL (150-450); RBC 4.37 m/uL (3.80-5.40); RDW 13.9 % (11.5-15.5); WBC 11.5 k/uL (3.8-10.6)
[2019-05-20 20:18] LABS: ALT 21 U/L (4-34); AST 34 U/L (14-36); Acetaminophen <10.0 ug/mL; African American GFR (CKD) >90 (>60 ml/min/1.73 sqM); Albumin 4.8 g/dL (3.5-5.0); Alcohol <10 mg/dL; Alkaline Phosphatase 74 U/L (38-126); Anion Gap 8 mmol/L; Blood Urea Nitrogen 6 mg/dL (7-17); Calcium 9.6 mg/dL (8.4-10.2); Carbon Dioxide 30 mmol/L (22-30); Chloride 101 mmol/L (98-107); Glucose 96 mg/dL (74-99); Non-African American GFR(CKD) >90 (>60 ml/min/1.73 sqM); Partial Thromboplastin Time 23.3 sec (22.0-30.0); Potassium 3.2 mmol/L (3.5-5.1); Prothrombin Time 10.5 sec (9.0-12.0); Salicylate <1.0 mg/dL; Sodium 139 mmol/L (137-145); Total Bilirubin 0.6 mg/dL (0.2-1.3); Total Protein 7.5 g/dL (6.3-8.2)
--- NOTE | 2019-05-20 20:22 | XR ---
EXAMINATION TYPE: XR chest 2V DATE OF EXAM: 05/20/2019 COMPARISON: 09/30/2018 HISTORY: Altered mental status TECHNIQUE: FINDINGS: Heart is normal. Lungs are clear of infiltrate. There is no pleural effusion. There are no hilar masses. Bony thorax is intact. IMPRESSION: Normal chest. There is clearing of area of atelectasis medial right lower lobe compared t o last exam.
--- NOTE | 2019-05-20 20:49 | CT ---
EXAMINATION TYPE: CT brain wo con DATE OF EXAM: 05/20/2019 COMPARISON: None HISTORY: Hallucinations and confusion CT DLP: 1074.4 mGycm Automated exposure control for dose reduction was used. Ventricles and sulci appear normal. There is no mass effect nor midline shift. There is no sign of in tracranial hemorrhage. Calvarium is intact. There is mild mucosal thickening right side of the spheno id sinus. IMPRESSION: Normal CT scan of the brain. Mild sphenoid sinusitis.
[2019-05-20 21:49] LABS: Cocaine Screen,Urine Not Detected (NotDetected); Opiate Screen,Urine Not Detected (NotDetected); Phencyclidine Screen,Urine Not Detected (NotDetected); Urn Cannabinoid Scrn Not Detected (NotDetected)
[2019-05-20 21:50] LABS: Amphetamine Screen,Urine Detected (NotDetected); Barbiturate Screen,Urine Not Detected (NotDetected); Benzodiazepines Screen,Urine Not Detected (NotDetected); Methadone Screen, Urine Not Detected (NotDetected); Oxycodone Screen, Urine Not Detected (NotDetected); Tricyclic Antidepressant,Urine Not Detected (NotDetected)
[2019-05-20 22:28] VITALS: BP 139/95; PULSE 83
== END 2019-05-20 22:30 | disposition home or self-care (01) ==
LOC: EC 18:13
DX: R41.0 Disorientation, unspecified (principal); R53.1 Weakness; F17.200 Nicotine dependence, unspecified, uncomplicated; Z88.5 Allergy status to narcotic agent; Z79.891 Long term (current) use of opiate analgesic; Z79.899 Other long term (current) drug therapy; Z85.44 Personal history of malignant neoplasm of other female genital organs; Z86.14 Personal history of Methicillin resistant Staphylococcus aureus infection; Z87.39 Personal history of other diseases of the musculoskeletal system and connective tissue
CPT/HCPCS: 36415; 93005; 80053; 82140; 84484; 85025; 85610; 85730; 81001; 81025; 80306; 83520; 71046; 70450; 99285; 96360; G0480 ×2; 80320; 80329

== ENCOUNTER 2019-05-21 23:50 | Emergency (ER) | payer MEDICARE, OTHER ==
[2019-05-22 00:12] VITALS: TEMP 98
[2019-05-22] MEDS ORDERED: SODIUM CHLORIDE 0.9% 1,000 ML IV ONE ×2 (00:34)
[2019-05-22] MEDS ORDERED: SODIUM CHLORIDE 0.9% 500 ML 500 ML IV ONE (00:34)
--- NOTE | 2019-05-22 00:43 | ED ---
Psych HPI - General Chief Complaint: Anxiety Stated Complaint: anxiety Time Seen by Provider: 05/22/19 00:27 Source: patient, family, RN notes reviewed, old records reviewed Mode of arrival: wheelchair Limitations: altered mental status - History of Present Illness Initial Comments: This is a 40-year-old female DF for evaluation patient is respiratory yesterday for altered mental status and psychiatric illness. He but again today by family for evaluation. Patient's here with her 2 sons or bladder also) history takes patient becoming worse, talking deployment there seeing things that aren't there. Patient is refusing history taking at this time, MD Complaint: altered mental status -: unknown Associated Psychiatric Symptoms: racing thoughts, auditory hallucinations, vi sual hallucinations, delusions Quality: constant Improves With: none Worsens With: none Associated Symptoms: confusion Treatments Prior to Arrival: placed on mental health hold - Related Data Home Medications Medication Instructions Recorded Confirmed traMADol HCl [Ultram] 100 mg PO BID 11/18/13 09/28/18 ALPRAZolam [Xanax] 1 mg PO BID PRN 09/28/18 09/28/18 PARoxetine [Paxil] 40 mg PO DAILY 09/28/18 09/28/18 Pregabalin [Lyrica] 150 mg PO BID 09/28/18 09/28/18 Allergies Allergy/AdvReac Type Severity Reaction Status Date / Time codeine Allergy Unknown Verified 05/22/19 00:11 meperidine HCl [From Demerol] Allergy Nausea & Verified 05/22/19 00:11 Vomiting morphine AdvReac Itching, Verified 05/22/19 00:11 AGGRESIVE Review of Systems ROS Statement: Those systems with pertinent positive or pertinent negative responses have been documented in the HPI. ROS Other: All systems not noted in ROS Statement are negative. Past Medical History Past Medical History: Cancer Additional Past Medical History / Comment(s): back pain, vulva cancer History of Any Multi-Drug Resistant Organisms: MRSA Date of last positivie culture/infection: 2013 MDRO Source:: buttocks Past Surgical History: Hernia Repair Additional Past Surgical History / Comment(s): surgery Past Anesthesia/Blood Transfusion Reactions: Previous Problems w/ Anesthesia Additional Past Anesthesia/Blood Transfusion Reaction / Comment(s): hard time waking up, headaches with epidurals Past Psychological History: Anxiety Smoking Status: Current every day smoker Past Alcohol Use History: None Reported Past Drug Use History: None Reported - Past Family History Father Family Medical History: Myocardial Infarction ([place]) Mother Family Medical History: Hypertension General Exam Limitations: altered mental status General appearance: alert, in no apparent distress Head exam: Present: atraumatic, normocephalic, normal inspection Eye exam: Present: normal appearance, PERRL, EOMI. Absent: scleral icterus, co njunctival injection, periorbital swelling ENT exam: Present: normal exam, mucous membranes moist Neck exam: Present: normal inspection. Absent: tenderness, meningismus, lymphadenopathy Respiratory exam: Present: normal lung sounds bilaterally. Absent: respiratory distress, wheezes, rales, rhonchi, stridor Cardiovascular Exam: Present: regular rate, normal rhythm, normal heart sounds. Absent: systolic murmur, diastolic murmur, rubs, gallop, clicks GI/Abdominal exam: Present: soft, normal bowel sounds. Absent: distended, tenderness, guarding, rebound, rigid Extremities exam: Present: normal inspection, full ROM, normal capillary refill. Absent: tenderness, pedal edema, joint swelling, calf tenderness Back exam: Present: normal inspection Neurological exam: Present: alert, oriented X3, CN II-XII intact Psychiatric exam: Present: normal affect, normal mood Skin exam: Present: warm, dry, intact, normal color. Absent: rash Course Vital Signs 05/22/19 05/22/19 00:08 01:50 Temperature 98.0 F Pulse Rate 81 89 Respiratory 26 H 24 Rate Blood Pressure 141/65 139/74 O2 Sat by Pulse 98 100 Oximetry - Reevaluation(s) Reevaluation #1: Patient medical clear for psychiatric evaluation Seen and evaluated by psychiatry Medical Decision Making - Medical Decision Making 48 female to the ER for evaluation anxiety and panic, patient evaluation Here in the ER and discharaged for further psychiatric evaluation and treatment - Lab Data Result diagrams: 05/22/19 00:55 05/22/19 00:55 Lab Results 05/22/19 05/22/19 05/22/19 Range/Units 00:55 00:55 00:55 WBC 8.4 (3.8-10.6) k/uL RBC 4.45 (3.80-5.40) m/uL Hgb 14.8 (11.4-16.0) gm/dL Hct 42.4 (34.0-46.0) % MCV 95.2 (80.0-100.0) fL MCH 33.4 (25.0-35.0) pg MCHC 35.0 (31.0-37.0) g/dL RDW 13.8 (11.5-15.5) % Plt Count 352 (150-450) k/uL Neutrophils % 50 % Lymphocytes % 39 % Monocytes % 7 % Eosinophils % 1 % Basophils % 0 % Neutrophils # 4.2 (1.3-7.7) k/uL Lymphocytes # 3.3 (1.0-4.8) k/uL Monocytes # 0.6 (0-1.0) k/uL Eosinophils # 0.1 (0-0.7) k/uL Basophils # 0.0 (0-0.2) k/uL PT (9.0-12.0) sec INR (<1.2) APTT (22.0-30.0) sec Sodium 142 (137-145) mmol/L Potassium 3.7 (3.5-5.1) mmol/L Chloride 110 H (98-107) mmol/L Carbon Dioxide 19 L (22-30) mmol/L Anion Gap 13 mmol/L BUN 14 (7-17) mg/dL Creatinine 0.73 (0.52-1.04) mg/dL Est GFR (CKD-EPI)AfAm >90 (>60 ml/min/1.73 sqM) Est GFR (CKD-EPI)NonAf >90 (>60 ml/min/1.73 sqM) Glucose 81 (74-99) mg/dL Calcium 10.2 (8.4-10.2) mg/dL Phosphorus 1.5 L (2.5-4.5) mg/dL Magnesium 2.1 (1.6-2.3) mg/dL Total Bilirubin 1.1 (0.2-1.3) mg/dL AST 37 H (14-36) U/L ALT 19 (4-34) U/L Alkaline Phosphatase 86 (38-126) U/L Ammonia (<30) umol/L Creatine Kinase 565 H (30-135) U/L Troponin I (0.000-0.034) ng/mL Total Protein 7.2 (6.3-8.2) g/dL Albumin 4.6 (3.5-5.0) g/dL Urine Color Inge Urine Appearance Clear (Clear) Urine pH 6.0 (5.0-8.0) Ur Specific [place] 1.015 (1.001-1.035) Urine Protein 2+ (Negative) Urine Glucose (UA) Negative (Negative) Urine Ketones 3+ (Negative) Urine Blood Large H (Negative) Urine Nitrite Negative (Negative) Urine Bilirubin Negative (Negative) Urine Urobilinogen <2.0 (<2.0) mg/dL Ur Leukocyte Esterase Small (Negative) Urine RBC 8 H (0-5) /hpf Urine WBC 4 (0-5) /hpf Ur Squamous Epith Cells 1 (0-4) /hpf Calcium Oxalate Crystal Rare H (None) /hpf Urine Mucus Rare H (None) /hpf Salicylates <1.0 mg/dL Urine Opiates Screen Not Detected (NotDetected) Ur Oxycodone Screen Not Detected (NotDetected) Urine Methadone Screen Not Detected (NotDetected) Ur Propoxyphene Screen Not Detected (NotDetected) Acetaminophen <10.0 ug/mL Ur Barbiturates Screen Not Detected (NotDetected) U Tricyclic Antidepress Not Detected (NotDetected) Ur Phencyclidine Scrn Not Detected (NotDetected) Ur Amphetamines Screen Detected H (NotDetected) U Methamphetamines Scrn Not Detected (NotDetected) U Benzodiazepines Scrn Not Detected (NotDetected) Urine Cocaine Screen Not Detected (NotDetected) U Marijuana (THC) Screen Not Detected (NotDetected) Serum Alcohol <10 mg/dL 05/22/19 05/22/19 05/22/19 Range/Units 00:55 00:55 00:55 WBC (3.8-10.6) k/uL RBC (3.80-5.40) m/uL Hgb (11.4-16.0) gm/dL Hct (34.0-46.0) % MCV (80.0-100.0) fL MCH (25.0-35.0) pg MCHC (31.0-37.0) g/dL RDW (11.5-15.5) % Plt Count (150-450) k/uL Neutrophils % % Lymphocytes % % Monocytes % % Eosinophils % % Basophils % % Neutrophils # (1.3-7.7) k/uL Lymphocytes # (1.0-4.8) k/uL Monocytes # (0-1.0) k/uL Eosinophils # (0-0.7) k/uL Basophils # (0-0.2) k/uL PT 10.5 (9.0-12.0) sec INR 1.0 (<1.2) APTT 22.3 (22.0-30.0) sec Sodium (137-145) mmol/L Potassium (3.5-5.1) mmol/L Chloride (98-107) mmol/L Carbon Dioxide (22-30) mmol/L Anion Gap mmol/L BUN (7-17) mg/dL Creatinine (0.52-1.04) mg/dL Est GFR (CKD-EPI)AfAm (>60 ml/min/1.73 sqM) Est GFR (CKD-EPI)NonAf (>60 ml/min/1.73 sqM) Glucose (74-99) mg/dL Calcium (8.4-10.2) mg/dL Phosphorus (2.5-4.5) mg/dL Magnesium (1.6-2.3) mg/dL Total Bilirubin (0.2-1.3) mg/dL AST (14-36) U/L ALT (4-34) U/L Alkaline Phosphatase (38-126) U/L Ammonia <9 (<30) umol/L Creatine Kinase (30-135) U/L Troponin I <0.012 (0.000-0.034) ng/mL Total Protein (6.3-8.2) g/dL Albumin (3.5-5.0) g/dL Urine Color Urine Appearance (Clear) Urine pH (5.0-8.0) Ur Specific [place] (1.001-1.035) Urine Protein (Negative) Urine Glucose (UA) (Negative) Urine Ketones (Negative) Urine Blood (Negative) Urine Nitrite (Negative) Urine Bilirubin (Negative) Urine Urobilinogen (<2.0) mg/dL Ur Leukocyte Esterase (Negative) Urine RBC (0-5) /hpf Urine WBC (0-5) /hpf Ur Squamous Epith Cells (0-4) /hpf Calcium Oxalate Crystal (None) /hpf Urine Mucus (None) /hpf Salicylates mg/dL Urine Opiates Screen (NotDetected) Ur Oxycodone Screen (NotDetected) Urine Methadone Screen (NotDetected) Ur Propoxyphene Screen (NotDetected) Acetaminophen ug/mL Ur Barbiturates Screen (NotDetected) U Tricyclic Antidepress (NotDetected) Ur Phencyclidine Scrn (NotDetected) Ur Amphetamines Screen (NotDetected) U Methamphetamines Scrn (NotDetected) U Benzodiazepines Scrn (NotDetected) Urine Cocaine Screen (NotDetected) U Marijuana (THC) Screen (NotDetected) Serum Alcohol mg/dL Disposition Clinical Impression: Acute anxiety, Panic attack, Altered mental status Disposition: HOME SELF-CARE Condition: Fair Instructions (If sedation given, give patient instructions): Generalized Anxiety Disorder (ED) Is patient prescribed a controlled substance at d/c from ED?: No Referrals: Hugo Martin MD [Primary Care Provider] - 1-2 days
[2019-05-22 01:14] LABS: Basophils % (A) 0 %; Eosinophils # (A) 0.1 k/uL (0-0.7); Eosinophils % (A) 1 %; HCT 42.4 % (34.0-46.0); HGB 14.8 gm/dL (11.4-16.0); Lymphocytes # (A) 3.3 k/uL (1.0-4.8); Lymphocytes % (A) 39 %; MCH 33.4 pg (25.0-35.0); MCV 95.2 fL (80.0-100.0); Mean Platelet Volume 7.8; Monocytes # (A) 0.6 k/uL (0-1.0); Monocytes % (A) 7 %; Neutrophils # (A) 4.2 k/uL (1.3-7.7); Neutrophils % (A) 50 %; Platelet Count 352 k/uL (150-450); RBC 4.45 m/uL (3.80-5.40); RDW 13.8 % (11.5-15.5); WBC 8.4 k/uL (3.8-10.6)
[2019-05-22 01:18] LABS: Appearance,Urine Clear (Clear); Calcium Oxalate Crystals,Urine Rare /hpf; Color,Urine Amber; Glucose,Urine (UA) Negative (Negative); Mucus,Urine Rare /hpf; Protein,Urine 2+ (Negative); RBC,Urine 8 /hpf (0-5); Specific Gravity,Urine 1.015 (1.001-1.035); Squamous Epithelial Cell,Urine 1 /hpf (0-4); WBC,Urine 4 /hpf (0-5)
[2019-05-22 01:19] LABS: Bilirubin,Urine Negative (Negative); Blood,Urine Large (Negative); Ketones,Urine 3+ (Negative); Leukocyte Esterase,Urine Small (Negative); Nitrite,Urine Negative (Negative); Partial Thromboplastin Time 22.3 sec (22.0-30.0); Prothrombin Time 10.5 sec (9.0-12.0); Urobilinogen,Urine <2.0 mg/dL (<2.0)
[2019-05-22 01:20] LABS: ALT 19 U/L (4-34); AST 37 U/L (14-36); Acetaminophen <10.0 ug/mL; African American GFR (CKD) >90 (>60 ml/min/1.73 sqM); Albumin 4.6 g/dL (3.5-5.0); Alcohol <10 mg/dL; Alkaline Phosphatase 86 U/L (38-126); Anion Gap 13 mmol/L; Blood Urea Nitrogen 14 mg/dL (7-17); Calcium 10.2 mg/dL (8.4-10.2); Carbon Dioxide 19 mmol/L (22-30); Chloride 110 mmol/L (98-107); Creatine Kinase 565 U/L (30-135); Glucose 81 mg/dL (74-99); Magnesium 2.1 mg/dL (1.6-2.3); Non-African American GFR(CKD) >90 (>60 ml/min/1.73 sqM); Phosphorus 1.5 mg/dL (2.5-4.5); Potassium 3.7 mmol/L (3.5-5.1); Salicylate <1.0 mg/dL; Sodium 142 mmol/L (137-145); Total Bilirubin 1.1 mg/dL (0.2-1.3); Total Protein 7.2 g/dL (6.3-8.2)
[2019-05-22 01:25] LABS: Amphetamine Screen,Urine Detected (NotDetected); Barbiturate Screen,Urine Not Detected (NotDetected); Benzodiazepines Screen,Urine Not Detected (NotDetected); Cocaine Screen,Urine Not Detected (NotDetected); Methadone Screen, Urine Not Detected (NotDetected); Opiate Screen,Urine Not Detected (NotDetected); Oxycodone Screen, Urine Not Detected (NotDetected); Phencyclidine Screen,Urine Not Detected (NotDetected); Tricyclic Antidepressant,Urine Not Detected (NotDetected); Urn Cannabinoid Scrn Not Detected (NotDetected)
--- NOTE | 2019-05-22 01:48 | CT ---
EXAMINATION TYPE: CT brain wo con DATE OF EXAM: 05/22/2019 COMPARISON: 05/20/2019 HISTORY: Patient presents with AMS. CT DLP: 1078.40 mGycm Automated exposure control for dose reduction was used. Ventricles and sulci appear normal. There is no mass effect nor midline shift. There is no sign of in tracranial hemorrhage. Calvarium appears normal. There is some mucosal thickening in the inferior sph enoid sinus. IMPRESSION: Negative CT scan of the brain. Brain unchanged compared to last exam.
[2019-05-22 01:51] VITALS: BP 139/74; PULSE 89; RESP 24
== END 2019-05-22 06:26 | disposition home or self-care (01) ==
LOC: EC 23:50
DX: F41.0 Panic disorder [episodic paroxysmal anxiety] (principal); F17.200 Nicotine dependence, unspecified, uncomplicated; M54.9 Dorsalgia, unspecified; Z79.891 Long term (current) use of opiate analgesic; Z79.899 Other long term (current) drug therapy; Z88.5 Allergy status to narcotic agent; Z85.44 Personal history of malignant neoplasm of other female genital organs; Z86.14 Personal history of Methicillin resistant Staphylococcus aureus infection
CPT/HCPCS: 99285; 96360; 36415; 93005; 80053; 82140; 82550; 83735; 84100; 84484; 85025; 85610; 85730; 81001; 80306; 83520; 70450; G0480 ×2; 80320; 80329

== ENCOUNTER 2021-03-15 05:57 | Emergency (ER) | payer MEDICARE, OTHER ==
[2021-03-15 06:10] VITALS: TEMP 97.7
[2021-03-15] MEDS ORDERED: SODIUM CHLORIDE 0.9% 1,000 ML IV STA (06:24)
[2021-03-15] MEDS ORDERED: SODIUM CHLORIDE 0.9% 500 ML 500 ML IV STA (06:24)
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
[2021-03-15 06:44] LABS: Basophils % (A) 0 %; Eosinophils # (A) 0.2 k/uL (0-0.7); Eosinophils % (A) 4 %; HCT 40.4 % (34.0-46.0); Lymphocytes # (A) 1.8 k/uL (1.0-4.8); Lymphocytes % (A) 28 %; MCH 34.6 pg (25.0-35.0); MCHC 34.6 g/dL (31.0-37.0); MCV 100.2 fL (80.0-100.0); Mean Platelet Volume 7.4; Monocytes # (A) 0.4 k/uL (0-1.0); Monocytes % (A) 6 %; Neutrophils # (A) 3.9 k/uL (1.3-7.7); Neutrophils % (A) 60 %; Platelet Count 266 k/uL (150-450); RBC 4.04 m/uL (3.80-5.40); RDW 12.9 % (11.5-15.5); WBC 6.5 k/uL (3.8-10.6)
[2021-03-15 06:55] LABS: ALT 18 U/L (4-34); AST 23 U/L (14-36); African American GFR (CKD) >90 (>60 ml/min/1.73 sqM); Albumin 3.3 g/dL (3.5-5.0); Alkaline Phosphatase 51 U/L (38-126); Anion Gap 8 mmol/L; Blood Urea Nitrogen 14 mg/dL (7-17); Calcium 9.2 mg/dL (8.4-10.2); Carbon Dioxide 27 mmol/L (22-30); Chloride 105 mmol/L (98-107); Glucose 107 mg/dL (74-99); Magnesium 1.7 mg/dL (1.6-2.3); Non-African American GFR(CKD) >90 (>60 ml/min/1.73 sqM); Potassium 3.7 mmol/L (3.5-5.1); Sodium 140 mmol/L (137-145); Total Bilirubin 0.3 mg/dL (0.2-1.3); Total Protein 5.9 g/dL (6.3-8.2)
--- NOTE | 2021-03-15 07:03 | XR ---
EXAMINATION TYPE: XR chest 2V DATE OF EXAM: 03/15/2021 COMPARISON: NONE HISTORY: Cough TECHNIQUE: 2 views FINDINGS: Heart and mediastinum are normal. Lungs are clear of consolidation. There is mild pulmonary hyperinflation. There are no hilar masses. Bony thorax is intact. IMPRESSION: There is probably some COPD. No acute lung disease. No change.
[2021-03-15 07:41] LABS: Appearance,Urine Clear (Clear); Bilirubin,Urine Negative (Negative); Blood,Urine Moderate (Negative); Color,Urine Yellow; Glucose,Urine (UA) Negative (Negative); Hyaline Casts,Urine 1 /lpf (0-2); Ketones,Urine Negative (Negative); Leukocyte Esterase,Urine Trace (Negative); Mucus,Urine Rare /hpf; Nitrite,Urine Negative (Negative); Protein,Urine Trace (Negative); RBC,Urine 7 /hpf (0-5); Specific Gravity,Urine 1.028 (1.001-1.035); Urobilinogen,Urine <2.0 mg/dL (<2.0); WBC,Urine 4 /hpf (0-5)
[2021-03-15 08:18] LABS: Amphetamine Screen,Urine Detected (NotDetected); Benzodiazepines Screen,Urine Detected (NotDetected); Cocaine Screen,Urine Not Detected (NotDetected); Opiate Screen,Urine Not Detected (NotDetected); Phencyclidine Screen,Urine Not Detected (NotDetected); Urn Cannabinoid Scrn Not Detected (NotDetected)
[2021-03-15 08:19] LABS: Barbiturate Screen,Urine Not Detected (NotDetected); Methadone Screen, Urine Not Detected (NotDetected); Oxycodone Screen, Urine Not Detected (NotDetected); Tricyclic Antidepressant,Urine Not Detected (NotDetected)
[2021-03-15 10:21] VITALS: BP 111/84; PULSE 78; RESP 18
== END 2021-03-15 10:21 | disposition home or self-care (01) ==
LOC: EC 05:57
DX: U07.1 COVID-19 (principal); F41.9 Anxiety disorder, unspecified; F32.A Depression, unspecified; F17.200 Nicotine dependence, unspecified, uncomplicated; Z88.5 Allergy status to narcotic agent; Z85.44 Personal history of malignant neoplasm of other female genital organs
CPT/HCPCS: 36415; 71046; 80053; 80306; 81001; 83605; 83735; 85025; 87635; 93005; 99284

== ENCOUNTER 2021-03-16 22:14 | Emergency (ER) | payer MEDICARE, OTHER ==
--- NOTE | 2021-03-16 23:20 | ED ---
General Adult HPI - General Chief complaint: Upper Respiratory Infection Stated complaint: Vomiting, Covid+ Time Seen by Provider: 03/16/21 22:42 Source: patient Mode of arrival: ambulatory Limitations: no limitations - History of Present Illness Initial comments: This patient is a 50-year-old woman who presents with a constellation of symptoms she believes is related to covid infection. The patient states that on Wednesday she started having symptoms that she felt were indicative of ALLERGIES, she was having rhinorrhea and some congestion. She subsequent only started having some myalgias, cough, little bit of dyspnea and now she is having some abdominal discomfort and diarrhea. She did come here and have a positive test and she was told that she was offered antibiotic therapy but declined at that time. She now returns and requests the antibiotic therapy. She states that she was told she has no neurological issues related to being post chemotherapy. -: days(s) Location: abdomen Severity scale (1-10): 1 Quality: other (Rapid) Consistency: constant Improves with: none Worsens with: none Associated Symptoms: other Treatments Prior to Arrival: none - Related Data Home Medications Medication Instructions Recorded Confirmed traMADol HCl [Ultram] 100 mg PO BID 11/18/13 09/28/18 ALPRAZolam [Xanax] 1 mg PO BID PRN 09/28/18 09/28/18 PARoxetine [Paxil] 40 mg PO DAILY 09/28/18 09/28/18 Pregabalin [Lyrica] 150 mg PO BID 09/28/18 09/28/18 Allergies Allergy/AdvReac Type Severity Reaction Status Date / Time codeine Allergy Unknown Verified 03/16/21 22:36 meperidine HCl [From Demerol] Allergy Nausea & Verified 03/16/21 22:36 Vomiting morphine AdvReac Itching, Verified 03/16/21 22:36 AGGRESIVE Review of Systems ROS Statement: Those systems with pertinent positive or pertinent negative responses have been documented in the HPI. ROS Other: All systems not noted in ROS Statement are negative. Constitutional: Reports: fever, chills Respiratory: Reports: cough. Denies: dyspnea Cardiovascular: Denies: chest pain, palpitations Gastrointestinal: Reports: abdominal pain, nausea, diarrhea. Denies: vomiting, constipation, melena, hematochezia Genitourinary: Denies: dysuria, hematuria Musculoskeletal: Denies: back pain Skin: Denies: rash Neurological: Denies: headache, weakness Past Medical History Past Medical History: Cancer Additional Past Medical History / Comment(s): back pain, vulva cancer History of Any Multi-Drug Resistant Organisms: MRSA Date of last positivie culture/infection: 2013 MDRO Source:: buttocks Past Surgical History: Hernia Repair Additional Past Surgical History / Comment(s): surgery, vaginal surgery Past Anesthesia/Blood Transfusion Reactions: Previous Problems w/ Anesthesia Additional Past Anesthesia/Blood Transfusion Reaction / Comment(s): hard time waking up, headaches with epidurals Past Psychological History: Anxiety, Depression Smoking Status: Current every day smoker Past Alcohol Use History: None Reported Past Drug Use History: None Reported - Past Family History Father Family Medical History: Myocardial Infarction ([place]) Mother Family Medical History: Hypertension General Exam Limitations: no limitations General appearance: alert, in no apparent distress Head exam: Present: atraumatic, normocephalic Eye exam: Present: normal appearance. Absent: scleral icterus, conjunctival injection Respiratory exam: Present: normal lung sounds bilaterally. Absent: respiratory distress, wheezes, rales, rhonchi, stridor Cardiovascular Exam: Present: regular rate, normal rhythm, normal heart sounds. Absent: systolic murmur, diastolic murmur, rubs, gallop GI/Abdominal exam: Present: soft. Absent: distended, tenderness, guarding, rebound, rigid, mass Extremities exam: Present: normal inspection, normal capillary refill. Absent: pedal edema, calf tenderness Back exam: Present: normal inspection. Absent: CVA tenderness (R), CVA tender ness (L) Neurological exam: Present: alert Skin exam: Present: warm, dry, intact, normal color. Absent: rash Course Vital Signs 03/16/21 22:36 Temperature 97.8 F Pulse Rate 83 Respiratory 20 Rate Blood Pressure 146/85 O2 Sat by Pulse 99 Oximetry Disposition Clinical Impression: COVID-19 Disposition: HOME SELF-CARE Condition: Good Instructions (If sedation given, give patient instructions): Coronavirus Disease 2019 (COVID-19) Is patient prescribed a controlled substance at d/c from ED?: No Referrals: Hugo Martin MD [Primary Care Provider] - 1-2 days
[2021-03-16] MEDS ORDERED: SODIUM CHLORIDE 0.9% 50 ML IVPB ONE (23:30)
[2021-03-16] MEDS ORDERED: BAMLANIVIMAB (EUA) 700 MG, ETESEVIMAB (EUA) 1,400 MG in SODIUM CHLORIDE 0.9% 50 ML IVPB ONE (23:45)
[2021-03-17 00:33] VITALS: RESP 18
[2021-03-17 01:52] VITALS: BP 141/89; PULSE 78; TEMP 98.7
== END 2021-03-17 01:52 | disposition home or self-care (01) ==
LOC: EC 22:14
DX: U07.1 COVID-19 (principal); F41.9 Anxiety disorder, unspecified; F32.A Depression, unspecified; F17.200 Nicotine dependence, unspecified, uncomplicated; Z88.5 Allergy status to narcotic agent
CPT/HCPCS: 96360; 99284; M0245